=== PATIENT | female | born 1965 | race African-American/Black ===

== ENCOUNTER 2022-09-23 09:10 | Emergency (ER) | payer SELFPAY ==
[2022-09-23 09:20] VITALS: BP 162/77; PULSE 65; RESP 18; TEMP 37.1; O2SAT 99; BMI 38.7
--- NOTE | 2022-09-23 09:28 | ED.GENADUL1 ---
HPI - General Adult General Chief complaint: Neck Pain/Injury Stated complaint: R ARM/NECK TINGLING/NUMBNESS SHOOTS DOWN ARM Time Seen by Provider: 09/23/22 09:27 Source: patient Limitations: no limitations History of Present Illness HPI narrative: pt presents to emergency department complaining of right-sided are pain, numbness like and heaviness. She states this started 3 days ago when she woke up from her sleep. She states it felt like she had aa right neck has been taking anti-inflammatories is not having any relief. She states however when she elevates the arm over her head that feels better and all the symptoms resolve. She denies any trauma. She's never had anything like this before. She denies any cool Extremities. She denies any fever, or chills. She denies any throat pain, or edema. She denies any headache, visual disturbances, or speech difficulties.She states they changed the mattress a couple of months ago. She feels that she has to change her pillows but she did not change it. She states she normally sleeps on her right side but she was not able to sleep on her right side because of the pain. Related Data Previous Rx's Medication Instructions Recorded methylprednisolone 4 mg tablets in 4 mg PO DAILY #21 ea 09/23/22 a dose pack (Medrol (Wilian)) Allergies Allergy/AdvReac Type Severity Reaction Status Date / Time No Known Drug Allergies Allergy Verified 09/23/22 09:20 Review of Systems ROS Status of ROS 10 or more systems reviewed and unremarkable except as noted in history and below [facility] Social History Smoking status: Never smoker Exam Narrative Exam Narrative: Nurses notes and vital signs reviewed and patient is not hypoxic. General: Nontoxic, Well-appearing and in no apparent distress. Skin: Warm, dry, no pallor noted. No Rash Head: Normocephalic, atraumatic. Neck: Supple, non-tender. Eye: Pupils are equal, round and EOMI. No scleral icterus. Ears, Nose, Mouth, and Throat: TM clear, no posterior oropharynx erythema or nasal mucosal hypertrophy, uvula is mid-line Oral mucosa is moist Cardiovascular: Regular Rate and Rhythm without murmur, gallop or rub. Respiratory: No accessory muscle use or respiratory distress. Lungs are clear to auscultation, no wheezing, rales or rhonchi Chest Wall: no tenderness Back: No midline thoracic or lumbar vertebral tenderness. No CVA tenderness Musculoskeletal: normal ROM, no calf or popliteal tenderness, no lower extremity edema/swelling GI: Abdomen is soft, non-distended. Normal bowel sounds. No masses appreciated. No tenderness to palpation. No rebound, guarding, or rigidity noted. Neurological: A&O x4. No cranial nerve dysfunction observed. No truncal ataxia. Moves all extremities. Sensation intact. Psychiatric: Cooperative and interactive. Normal mood and affect. Constitutional Vital Signs, click to edit/add: Last Vital Signs Temp 98.7 F 09/23/22 09:20 Pulse 65 09/23/22 09:20 Resp 18 09/23/22 09:20 BP 162/77 H 09/23/22 09:20 Pulse Ox 99 09/23/22 09:20 O2 Del Method Room Air 09/23/22 09:20 Course Vital Signs Vital signs: Vital Signs Temperature 98.7 F 09/23/22 09:20 Pulse Rate 65 09/23/22 09:20 Respiratory Rate 18 09/23/22 09:20 Blood Pressure 162/77 H 09/23/22 09:20 Pulse Oximetry 99 09/23/22 09:20 Oxygen Delivery Method Room Air 09/23/22 09:20 Temperature 98.7 F 09/23/22 09:20 Pulse Rate 65 09/23/22 09:20 Respiratory Rate 18 09/23/22 09:20 Blood Pressure 162/77 H 09/23/22 09:20 Pulse Oximetry 99 09/23/22 09:20 Oxygen Delivery Method Room Air 09/23/22 09:20 Medical Decision Making MDM Narrative Medical decision making narrative: CT of the cervical spine demonstrates C4 C5 C6 stenosis. All of the results were discussed with patient. She is advised to follow up with primary care doctor. She is given a prescription for Medrol Dosepak. Advised Tylenol, Motrin. Advised no heavy lifting. At this time the patient is without objective evidence of an acute process requiring hospitalization or inpatient management. The patient has remained hemodynamically stable. No additional indication for emergent studies at this time. I answered all questions. Discussed discharge instructions including standard anticipatory guidance and what should prompt a return to the emergency department, including if they get worse are not getting better or develops any new or concerning symptoms. I've given them specific time frame in which to follow-up, and who to follow-up with. The patient demonstrates understanding. Patient is nontoxic and stable for discharge with outpatient follow-up. This note was created with the assistance of a speech recognition program. Although the intention is to generate documents that actually reflects the content of the visit, no guarantees can be provided that every mistake has been identified and corrected by editing. Discharge Plan Discharge Chief Complaint: Neck Pain/Injury Clinical Impression: Cervical radiculopathy Patient Disposition: Home, Self-Care Time of Disposition Decision: 10:52 Condition: Good Mode of Transportation: EMS Prescriptions / Home Meds: New methylprednisolone [Medrol (Wilian)] 4 mg tablets,dose pack 4 mg PO DAILY Qty: 21 0RF Instructions: Cervical Radiculopathy (ED), Neck Pain (ED) Stand Alone Forms: Portal Instructions Referrals: LIO WESLEY APRN [Physician] - 1 week Physician,Non-Staff, MD [Primary Care Provider] - 1 week
--- NOTE | 2022-09-23 09:35 | CT_ITS ---
The [address] [address] Patient Name: RITO FOREMAN MRN: [id number] date: 1965 Sex: F Assigned Patient Location: ER Current Patient Location: ER Accession/Order Number: [id number] Exam Date: 09/23/2022 09:53 Report Date: 09/23/2022 10:31 At the request of: JAIMEE ZAPATA Procedure: CT cervical spine wo con EXAM: CT cervical spine wo con HISTORY: neck pain COMPARISON: None. TECHNIQUE: CT cervical spine without contrast. Multiplanar reformats obtained. The current study utilizes one or more of the following dose-reduction techniques: automated exposure control, iterative reconstruction, and/or manual adjustment of tube current and voltage for size. FINDINGS: No acute fracture or traumatic malalignment. Age expected degenerative changes. Mild to moderate spinal canal stenoses secondary to disc osteophyte complexes at the C4-C5 and C5-C6 levels. Mild bilateral C4-C5 neural foraminal stenosis. Moderate right C5-C6 neural foraminal stenosis. 1.6 cm left thyroid nodule. CT/CT cervical spine wo con IMPRESSION: No acute findings. Disc osteophyte complexes at the C4-C5 and C5-C6 levels produce mild to moderate spinal canal stenosis. Moderate right C5-C6 neural foraminal stenosis. 1.6 cm left thyroid nodule. Nonemergent thyroid ultrasound recommended. Electronically authenticated by: BERNABE HERNANDEZ Date: 09/23/2022 10:31
[2022-09-23] MEDS: KETOROLAC TROMETHAMINE 60 MG/2 ML VIAL IM (10:25)
[2022-09-23] MEDS: ORPHENADRINE 60 MG/ 2 ML VIAL IM (10:25)
== END 2022-09-23 11:38 | disposition home or self-care (01) ==
PROVIDERS: Emergency Provider Emergency Medicine
DX: M54.12 Radiculopathy, cervical region (principal)
CPT/HCPCS: 72125; 96372; 99285

== ENCOUNTER 2022-10-16 14:15 | Emergency (ER) | payer SELFPAY ==
[2022-10-16 14:28] VITALS: BP 150/96; PULSE 102; RESP 20; TEMP 37; O2SAT 98; BMI 39.5
--- NOTE | 2022-10-16 14:52 | ED_ITS ---
HPI - URI/Sore Throat General Chief Complaint: Upper Respiratory Infection Stated Complaint: GENERAL WEAKNESS, SORE THROAT Time Seen by Provider: 10/16/22 14:48 Source: patient Limitations: no limitations History of Present Illness HPI Narrative: 57-year-old female presents with sinus congestion, sore throat and a very mild dry cough for the 2 days. She states that her came in 3 days ago and tested positive for COVID. She complains of a dry mouth. No Tylenol Motrin today. Denies fever, ear pain, difficulty swallowing, drooling, voice change, SOB or CP Related Data Home Medications Medication Instructions Recorded Confirmed atenolol 25 mg tablet 25 mg PO QPM 10/16/22 10/16/22 Allergies Allergy/AdvReac Type Severity Reaction Status Date / Time No Known Drug Allergies Allergy Verified 09/23/22 09:20 Review of Systems ROS Status of ROS 10 or more systems reviewed and unremarkable except as noted in history and below PFSH PFSH Social History Smoking status: Never smoker Exam Narrative Exam Narrative: General: A&Ox3, no distress, talking in full an complete sentences skin: warm, dry, intact head: normocephalic, atraumatic eyes: PERRLA, EOMI, normal conjunctiva nose: nares patent throat: oropharynx no erythema or exudate, no stridor, uvula midline neck: supple, trachea midline cardiac: +S1/S1. no murmur respiratory: lungs CTA, non-labored, no wheezing, no retractions extremities: FROM x 4, strength +5/5 neuro: A&Ox3 psych: appropriate mood and affect, cooperative Constitutional Vital Signs, click to edit/add: Last Vital Signs Temp 98.6 F 10/16/22 14:28 Pulse 102 H 10/16/22 14:28 Resp 20 10/16/22 14:28 BP 150/96 H 10/16/22 14:28 Pulse Ox 98 10/16/22 14:28 O2 Del Method Room Air 10/16/22 14:28 Course Vital Signs Vital signs: Vital Signs Temperature 98.6 F 10/16/22 14:28 Pulse Rate 102 H 10/16/22 14:28 Respiratory Rate 20 10/16/22 14:28 Blood Pressure 150/96 H 10/16/22 14:28 Pulse Oximetry 98 10/16/22 14:28 Oxygen Delivery Method Room Air 10/16/22 14:28 Temperature 98.6 F 10/16/22 14:28 Pulse Rate 102 H 10/16/22 14:28 Respiratory Rate 20 10/16/22 14:28 Blood Pressure 150/96 H 10/16/22 14:28 Pulse Oximetry 98 10/16/22 14:28 Oxygen Delivery Method Room Air 10/16/22 14:28 MDM - URI/Sore Throat MDM Narrative Medical decision making narrative: Patient complaining of dry mouth and thirst and fingerstick glucose 90. COVID- negative. This may be a false negative as her has COVID. Strep negative. Likely viral patient can use xpis-tyu-tvukoxy medications and follow- up with family doctor. She is instructed to use avck-rhd-vflyene medications. F/u with PCP. afebrile, not tachypneic, not tachycardic, not hypoxic, non toxic appearing and ambulating at baseline and hemodynamically stable to be d/c. answered all questions. pt in agreement with tx. educated when to return to ER. Lab Data Labs: Lab Results 10/16/22 10/16/22 Range/Units 14:30 14:52 SARS-CoV-2 (PCR) Negative (NEGATIVE) Streptococcus Screen Negative POC Glucose 90 (74-106) mg/dL Discharge Plan Discharge Chief Complaint: Upper Respiratory Infection Clinical Impression: Close exposure to COVID-19 virus, Viral upper respiratory tract infection with cough Patient Disposition: Home, Self-Care Time of Disposition Decision: 15:04 Condition: Good Mode of Transportation: Private Vehicle Prescriptions / Home Meds: No Action atenolol 25 mg tablet 25 mg PO QPM Instructions: Viral Syndrome (ED), COVID-19 (Coronavirus Disease 2019) (ED) Additional Instructions: use OTC cough med, zyrtec-D and flonase Stand Alone Forms: Portal Instructions Referrals: Physician,Non-Staff, MD [Primary Care Provider] - 1 week
[2022-10-16 14:54] LABS: Glucometer 90 mg/dL (74-106)
[2022-10-16 15:00] LABS: Internal Control Within Normal Limits; SARS-CoV-2 Ag NEGATIVE (NEGATIVE); Strep A Antigen Screen Negative
[2022-10-17 15:33] LABS: SARS-CoV-2 NAA NOT DETECTED (NOT DETECTE)
== END 2022-10-16 15:22 | disposition home or self-care (01) ==
PROVIDERS: Emergency Provider Emergency Medicine
DX: J06.9 Acute upper respiratory infection, unspecified (principal); R05.9 Cough, unspecified; Z20.822 Contact with and (suspected) exposure to COVID-19
CPT/HCPCS: 36415; 87070; 87635; 87880; 99283

== ENCOUNTER 2023-07-27 10:00 | Emergency (ER) | payer SELFPAY ==
[2023-07-27 10:09] VITALS: BP 138/65; PULSE 88; TEMP 38; O2SAT 98; BMI 38.7
--- NOTE | 2023-07-27 10:42 | ED.URI1 ---
HPI - URI/Sore Throat General Chief Complaint: Upper Respiratory Infection Stated Complaint: GENERAL WEAKNESS Time Seen by Provider: 07/27/23 10:42 Source: patient Limitations: no limitations History of Present Illness HPI Narrative: This patient is here complaining of cough congestion sore throat. Her is here being seen but he has fewer symptoms and none of the aches pains myalgias that she has. She says it came on all of a sudden. She says she just feels terrible. There is no nausea or vomiting. She has got some white sputum production. She does not use tobacco products. She has no skin rash. She has not lost her voice. She does not have any earache or headache. She has no shortness of breath or swelling of her legs. She has no chest pain Related Data Home Medications ?Medication ?Instructions ?Recorded ?Confirmed atenolol 25 mg tablet 25 mg PO QPM 10/16/22 10/16/22 Allergies Allergy/AdvReac Type Severity Reaction Status Date / Time No Known Drug Allergies Allergy Verified 07/27/23 10:08 [facility] Social History Smoking status: Never smoker Exam Narrative Exam Narrative: Patient is awake alert and no distress. Does not appear an extremis. She has a very low-grade fever. Her pulse oximetry is normal at 98% on room air. In a sitting position her lungs are completely clear with slight wheezing with forced exhalation. Otherwise there is no rales or rhonchi. Heart sounds are normal with no clicks rubs or murmur. Skin integument showed normal hydration with no evidence of pallor or anemia. She has no abdominal discomfort. ENT showed no other focus of infection. Extremities do not show any edema phlebitis or cellulitis. Constitutional Vital Signs, click to edit/add: Last Vital Signs Temp 100.4 F 07/27/23 10:09 Pulse 88 07/27/23 10:09 Resp 20 07/27/23 10:09 BP 138/65 07/27/23 10:09 Pulse Ox 98 07/27/23 10:09 O2 Del Method Room Air 07/27/23 10:09 Course Vital Signs Vital signs: Vital Signs Temperature 100.4 F 07/27/23 10:09 Pulse Rate 88 07/27/23 10:09 Respiratory Rate 20 07/27/23 10:09 Blood Pressure 138/65 07/27/23 10:09 Pulse Oximetry 98 07/27/23 10:09 Oxygen Delivery Method Room Air 07/27/23 10:09 Temperature 100.4 F 07/27/23 10:09 Pulse Rate 88 07/27/23 10:09 Respiratory Rate 20 07/27/23 10:09 Blood Pressure 138/65 07/27/23 10:09 Pulse Oximetry 98 07/27/23 10:09 Oxygen Delivery Method Room Air 07/27/23 10:09 MDM - URI/Sore Throat MDM Narrative Medical decision making narrative: This patient and her both present with similar symptoms however she has aches and pains and chills so therefore I do want to rule out COVID and influenza or pneumonia. Her viral studies are negative and her chest x-ray is also negative. She did receive an albuterol treatment because of her slight wheezing and I will place her on albuterol but I do not believe that at this time she will need home nebulizers. If her symptoms persist she can start a Z-Wilian. Discharge Plan Discharge Stand Alone Forms: Portal Instructions Chief Complaint: Upper Respiratory Infection Clinical Impression: URI with cough and congestion Patient Disposition: Home, Self-Care Time of Disposition Decision: 11:50 Prescriptions / Home Meds: No Action atenolol 25 mg tablet 25 mg PO QPM Print Language: Sinhala Additional Instructions: Albuterol inhaler Z-Wilian Referrals: SANTOS COOLEY [Primary Care Provider] - 1 week
--- NOTE | 2023-07-27 10:43 | XR_ITS ---
[address] [address] Patient Name: RITO FOREMAN MRN: [id number] date: 1965 Sex: F Assigned Patient Location: ER Current Patient Location: ER Accession/Order Number: [id number] Exam Date: 07/27/2023 11:17 Report Date: 07/27/2023 11:40 At the request of: CAMELIA CORREA Procedure: XR chest 1V EXAM: Chest x-ray HISTORY: . Cough/fever . COMPARISON: 01/31/2021 TECHNIQUE: Single view of the chest FINDINGS: Heart is slightly enlarged. Vascularity is unremarkable. Lungs are free of focal infiltrates. Grossly no bony abnormality is appreciated. XR/XR chest 1V IMPRESSION: 1. Cardiac enlargement. 2. No infiltrates. Electronically authenticated by: LORA ESCALANTE Date: 07/27/2023 11:40
[2023-07-27] MEDS: ALBUTEROL SULFATE 2.5 MG/3 ML VIAL NEB IH (11:07)
[2023-07-27 11:08] VITALS: PULSE 85; O2SAT 98
[2023-07-27 11:16] LABS: Influenza Virus A Antigen Negative; Influenza Virus B Antigen Negative; Internal Control Within Normal Limits; SARS-CoV-2 Ag NEGATIVE (NEGATIVE)
[2023-07-27 11:43] VITALS: BP 144/71; PULSE 98; O2SAT 99
== END 2023-07-27 11:59 | disposition home or self-care (01) ==
PROVIDERS: Emergency Provider Emergency Medicine Emergency Medical Services; PCP Nurse Practitioner Family
DX: J06.9 Acute upper respiratory infection, unspecified (principal); R05.9 Cough, unspecified; R09.89 Other specified symptoms and signs involving the circulatory and respiratory systems; R50.9 Fever, unspecified; Z20.822 Contact with and (suspected) exposure to COVID-19
CPT/HCPCS: 71045; 87804; 87811; 94640; 99284

== ENCOUNTER 2023-11-27 12:48 | Outpatient (OUT) | payer SELFPAY ==
--- OUTSIDE RECORDS SUMMARY | 2023-11-27 13:09 | XMS_ITS | CCD ---
Author Organization [facility] Care Team Providers Care Recycling Director Name Role Phone TOMMY, FADUMO Unavailable Unavailable TOMMY, FADUMO Unavailable Unavailable TOMMY, FADUMO Unavailable Unavailable TOMMY, FADUMO Unavailable Unavailable TOMMY, FADUMO Unavailable Unavailable TOMMY, FADUMO Unavailable Unavailable ANAYELI CASSIDY Admitting Unavailable STEPBALWINDER, ANAYELI Celaya Attending Unavailable STEPANAYELI BRITT Admitting Unavailable STEPANAYELI BRITT Attending Unavailable SUSAN ., DR ENCARNACION Consulting Unavailable SUSAN ., DR ENCARNACION Admitting Unavailable NADERER, DR JUAN Campa Primary Care Unavailable SUSAN ., DR ENCARNACION Attending Unavailable NADERER, DR JUAN Campa Primary Care Unavailable KUNWinter, DR ROWAN Culver Admitting Unavailable STEVEN, DR ROWAN Culver Attending Unavailable STEVEN, DR ROWAN Culver Attending Unavailable STEVEN, DR ROWAN Culver Primary Care Unavailable STEVEN, DR ROWAN Culver Admitting Unavailable ZIEBER, DR TIM Culver Consulting Unavailable STEVEN, DR ROWAN Culver Consulting Unavailable NOEMY, DR JUAN Campa Primary Care Unavailable ZIEBRHONDA, DR TIM Culver Consulting Unavailable STEVEN, DR ROWAN Culver Attending Unavailable STEVEN, DR ROWAN Culver Admitting Unavailable KUNS, DR ROWAN Culver Consulting Unavailable NADEREPalomo, DR JUAN Campa Primary Care Unavailable KUNS, DR ROWAN Culver Attending Unavailable STEVEN, DR ROWAN Culver Consulting Unavailable STEVEN, DR ROWAN Culver Admitting Unavailable Steven REMEDIATION PROJECT ENGINEER-Rowan GARCIA Primary Care Provider ROWAN HARRIS Referring Unavailable ROWAN HARRIS Primary Care Unavailable ROWAN HARRIS Attending Unavailable STEVEN, ROWAN MARTINEZ Referring Unavailable STEVEN, ROWAN MARTINEZ Primary Care Unavailable JEREMY WADSWORTH Attending Unavailable JEREMY WADSWORTH Referring Unavailable JEREMY WADSWORTH Primary Care Unavailable Medications Current Medications Medication Drug Class(es) Dates Sig (Normalized) Sig (Original) atenolol 25 mg oral tablet (3 sources) beta-Adrenergic Leland Start: 04-10-2023 take 1 tablet by mouth once daily in the evening atenoloL (TENORMIN) 25 mg tablet Indications: Hypertension, unspecified type take 1 tablet by mouth every evening 30 tablet 5 04/10/2023 Active Start: 10-07-2022 End: 04-10-2023 take 1 tablet by mouth once daily in the evening atenoloL (TENORMIN) 25 mg tablet Indications: Hypertension, unspecified type take 1 tablet by mouth every evening 30 tablet 5 10/07/2022 04/10/2023 Discontinued Biotin (2 sources) take 3 capsules by mouth once daily BIOTIN ORAL Take 3 capsules by mouth once daily. 0 Active cholecalciferol 0.125 mg oral capsule (3 sources) Vitamin D Start: 05-05-2023 take 1 capsule by mouth once daily cholecalciferol, vitamin D3, (VITAMIN D3) 5,000 units capsule take 1 capsule by mouth once daily 30 capsule 5 05/05/2023 Active Start: 01-10-2022 End: 05-05-2023 take 1 capsule by mouth in the morning cholecalciferol, vitamin D3, (VITAMIN D3) 5,000 units capsule Take 1 capsule (5,000 Units total) by mouth in the morning. 0 01/10/2022 05/05/2023 Discontinued fluocinonide 0.5 mg/ml topical solution (2 sources) Corticosteroid Start: 08-21-2022 fluocinonide (LIDEX) 0.05 % external solution APPLY TO SCALP AND MASSAGE INTO AFFECTED AREAS ONCE A DAY SUNDAY TO SUNDAY - OFF ON WEEKENDS 0 08/21/2022 Active ibuprofen 800 mg oral tablet (2 sources) Nonsteroidal Anti-inflammatory Drug Start: 09-25-2022 take 1 tablet by mouth every six hours at mealtime as needed for pain ibuprofen (MOTRIN) 800 mg tablet Indications: Cervical radiculopathy Take 1 tablet (800 mg total) by mouth every 6 (six) hours as needed for pain. HOLD MELOXICAM WHILE TAKING THIS DRUG. Take with food. 60 tablet 0 09/25/2022 Active multivitamin with iron (ONE DAILY PLUS IRON) tablet (2 sources) take 1 tablet by mouth in the morning, then take 1 tablet by mouth once daily multivitamin with iron (ONE DAILY PLUS IRON) tablet Take 1 tablet by mouth in the morning. 0 Active tiZANidine 4 mg oral tablet (2 sources) Central alpha-2 Adrenergic Agonist Start: 10-09-2022 take 1 tablet by mouth every eight hours for muscle spasms tiZANidine (ZANAFLEX) 4 mg tablet Indications: Cervical radiculopathy , Muscle spasms of neck take 1 tablet by mouth every 8 hours if needed for muscle spasm 12 tablet 0 10/09/2022 Active Problems Active Problems Problem Classification Problem Date Documented Date Episodic/Chronic Chronic obstructive pulmonary disease and bronchiectasis (1 source) Bronchitis, not specified as acute or chronic; Translations: [Bronchitis, not specified as acute or chronic] Onset: 07-31-2023 Episodic Disorders of lipid metabolism (2 sources) Mixed hyperlipidemia; Translations: [Mixed hyperlipidemia] Onset: 07-26-2021 04-28-2022 Chronic Essential hypertension (6 sources) Hypertensive disorder; Translations: [Essential (primary) hypertension] Onset: 02-07-2022 04-10-2023 Chronic Joint disorders and dislocations; trauma-related (2 sources) Derangement of left knee; Translations: [Unspecified internal derangement of left knee] Onset: 10-28-2021 10-28-2021 Chronic Menopausal disorders (7 sources) Postmenopausal bleeding; Translations: [Postmenopausal bleeding] Onset: 10-26-2021 Chronic Nutritional deficiencies (3 sources) Vitamin D deficiency; Translations: [Vitamin D deficiency, unspecified] Onset: 07-26-2021 04-28-2022 Chronic Osteoarthritis (2 sources) Osteoarthritis of left knee joint; Translations: [Unilateral primary osteoarthritis, left knee] Onset: 10-28-2021 10-28-2021 Chronic Other acquired deformities (2 sources) Contracture of joint of left ankle; Translations: [Contracture, left ankle] Onset: 10-28-2021 10-28-2021 Chronic Other connective tissue disease (1 source) Other muscle spasm; Translations: [Other muscle spasm] Onset: 10-09-2023 Episodic Other ear and sense organ disorders (2 sources) Sensorineural hearing loss, bilateral; Translations: [Sensorineural hearing loss, bilateral] Onset: 04-18-2017 04-18-2017 Chronic Other lower respiratory disease (1 source) Cough Onset: 07-31-2023 Episodic Other screening for suspected conditions (not mental disorders or infectious disease) (1 source) Abnormal findings on diagnostic imaging of other specified body structures; Translations: [ABNORML FIND DX IMG OTH BODY STRUC] Onset: 10-27-2021 Chronic Other screening for suspected conditions (not mental disorders or infectious disease) (12 sources) Encounter for screening for malignant neoplasm of cervix; Translations: [Encounter for screening mammogram for malignant neoplasm of breast] Onset: 02-13-2017 Episodic Residual codes; unclassified (1 source) Asymptomatic menopausal state; Translations: [Asymptomatic menopausal state] Onset: 10-09-2023 Episodic Spondylosis; intervertebral disc disorders; other back problems (1 source) Radiculopathy, cervical region; Translations: [Radiculopathy, cervical region] Onset: 07-31-2023 Episodic Thyroid disorders (4 sources) Thyroid nodule; Translations: [Nontoxic single thyroid nodule] Onset: 01-09-2023 01-09-2023 Chronic Unclassified (1 source) Unknown / UNK(Unknown) Onset: 03-29-2017 Past or Other Problems Problem Classification Problem Date Documented Date Episodic/Chronic Conditions associated with dizziness or vertigo (4 sources) Dizziness of unknown cause; Translations: [Dizziness and giddiness] Onset: 04-18-2017 04-18-2017 Episodic Mood disorders (2 sources) Mood disorders Onset: 01-09-2023 01-09-2023 Other female genital disorders (1 source) Noninflammatory disorder of uterus, unspecified; Translations: [NONINFLAMMATORY DISORDER UTERUS UNS] Onset: 10-27-2021 Episodic Other lower respiratory disease (4 sources) Other forms of dyspnea; Translations: [OTHER FORMS OF DYSPNEA] Onset: 08-19-2021 Episodic Residual codes; unclassified (1 source) Family history of malignant neoplasm of digestive organs; Translations: [FAM HX MALIG NEOPLASM DIGESTIV ORGN] Onset: 09-20-2021 Episodic Residual codes; unclassified (1 source) Family history of malignant neoplasm of kidney; Translations: [FAM HX MALIGNANT NEOPLASM KIDNEY] Onset: 09-20-2021 Episodic Residual codes; unclassified (1 source) Family history of malignant neoplasm of bladder; Translations: [FAM HX MALIGNANT NEOPLASM BLADDER] Onset: 09-20-2021 Episodic Superficial injury; contusion (2 sources) Foreign body of breast; Translations: [Superficial foreign body of breast, unspecified breast, initial encounter] Onset: 02-13-2017 10-28-2021 Episodic Unclassified (2 sources) Onset: 09-25-2022 09-25-2022 Results Test Name Value Interpretation Reference Range Facility CBC AND AUTO DIFFon 07-31-19 24 ABSOLUTE BASOPHIL 0.0 X10E9/L Normal 0.0-0.2 [facility] Comment on above: Performed By: #### C BCA, CMP, THYR #### [facility] ([id number]) [address], [address] [place] [address] ABSOLUTE NEUTROPHIL 2.8 X10E9/L Normal 1.5-6.6 [facility] Comment on above: Performed By: #### C BCA, CMP, THYR #### [facility] ([id number]) [address] [address] [place] [address] Basophils/100 WBC (Bld) 0.6 % Normal [facility] Comment on above: Performed By: #### C BCA, CMP, THYR #### [facility] ([id number]) [address], [address] [place] [address] Eosinophils (Bld) [#/Vol] 0.2 10*3/uL Normal 0.0-0.4 [facility] Comment on above: Performed By: #### C BCA, CMP, THYR #### [facility] ([id number]) [address], [address] [place] [address] Eosinophils/100 WBC (Bld) 3.3 % Normal [facility] Comment on above: Performed By: #### C BCA, CMP, THYR #### [facility] ([id number]) [address], [address] [place] [address] Erythrocyte distribution width (RBC) [Ratio] 13.0 % Normal 11.5-15.0 [facility] Comment on above: Performed By: #### C BCA, CMP, THYR #### [facility] ([id number]) [address], [address] [place] [address] Hematocrit (Bld) [Volume fraction] 38.4 % Normal 35-47 [facility] Comment on above: Performed By: #### C BCA, CMP, THYR #### [facility] ([id number]) [address], [address] [place] [address] Hemoglobin (Bld) [Mass/Vol] 12.7 g/dL Normal 11.7-15.5 [facility] Comment on above: Performed By: #### C BCA, CMP, THYR #### [facility] ([id number]) [address], [facility] [address] [place] [address] Lymphocytes (Bld) [#/Vol] 2.2 10*3/uL Normal 1.0-3.5 [facility] Comment on above: Performed By: #### C BCA, CMP, THYR #### [facility] ([id number]) [address], [facility] [address] [place] [address] Lymphocytes/100 WBC (Bld) 37.9 % Normal [facility] Comment on above: Performed By: #### C BCA, CMP, THYR #### [facility] ([id number]) [address], [address] [place] [address] MCH (RBC) [Entitic mass] 29.7 pg Normal 27-34 [facility] Comment on above: Performed By: #### C BCA, CMP, THYR #### [facility] ([id number]) [address], [address] [place] [address] MCHC (RBC) [Mass/Vol] 33.0 g/dL Normal 32-36 [facility] Comment on above: Performed By: #### C BCA, CMP, THYR #### [facility] ([id number]) [address], [address] [place] [address] MCV (RBC) [Entitic vol] 90 fL Normal 80-100 [facility] Comment on above: Performed By: #### C BCA, CMP, THYR #### [facility] ([id number]) [address], [facility] [address] [place] [address] Monocytes (Bld) [#/Vol] 0.6 10*3/uL Normal 0-0.9 [facility] Comment on above: Performed By: #### C BCA, CMP, THYR #### [facility] ([id number]) [address] [address] [place] [address] Monocytes/100 WBC (Bld) 10.3 % Normal [facility] Comment on above: Performed By: #### C BCA, CMP, THYR #### [facility] ([id number]) [address], [facility] [address] [place] [address] Neutrophils/100 WBC (Bld) 47.9 % Normal [facility] Comment on above: Performed By: #### C BCA, CMP, THYR #### [facility] ([id number]) [address], [facility] [address] [place] [address] Platelet mean volume (Bld) [Entitic vol] 10.0 fL Normal 7-12 [facility] Comment on above: Performed By: #### C BCA, CMP, THYR #### [facility] ([id number]) [address], [facility] [address] [place] [address] Platelets (Bld) [#/Vol] 244 10*3/uL Normal 150-450 [facility] Comment on above: Performed By: #### C BCA, CMP, THYR #### [facility] ([id number]) [address], [address] [place] [address] RBC COUNT 4.27 X10E12/L Normal 3.80-5.20 [facility] Comment on above: Performed By: #### C BCA, CMP, THYR #### [facility] ([id number]) [address], [address] [place] [address] WBC (Bld) [#/Vol] 5.9 10*3/uL Normal 4.0-11.0 [facility] Comment on above: Performed By: #### C BCA, CMP, THYR #### [facility] ([id number]) [address], [address] [place] [address] COMPREHENSIVE METABOLIC PANE [facility] 07-31-2023 Albumin [Mass/Vol] 4.0 g/dL Normal 3.2-5.3 [facility] Comment on above: Performed By: #### C BCA, CMP, THYR #### [facility] ([id number]) [address], [address] [place] [address] ALP [Catalytic activity/Vol] 54 U/L Normal 39-130 [facility] Comment on above: Performed By: #### C BCA, CMP, THYR #### [facility] ([id number]) [address], [address] [place] [address] ALT [Catalytic activity/Vol] 20 U/L Normal 0-31 [facility] Comment on above: Performed By: #### C BCA, CMP, THYR #### [facility] ([id number]) [address], [address] [place] [address] Anion gap [Moles/Vol] 9 mmol/L Normal 5-15 [facility] Comment on above: Performed By: #### C BCA, CMP, THYR #### [facility] ([id number]) [address], [address] [place] [address] AST [Catalytic activity/Vol] 20 U/L Normal 0-41 [facility] Comment on above: Performed By: #### C BCA, CMP, THYR #### [facility] ([id number]) [address], [address] [place] [address] Bilirubin [Mass/Vol] 0.7 mg/dL Normal 0.3-1.2 [facility] Comment on above: Performed By: #### C BCA, CMP, THYR #### [facility] ([id number]) [address], [facility] [address] [place] [address] Calcium [Mass/Vol] 9.1 mg/dL Normal 8.5-10.5 [facility] Comment on above: Performed By: #### C BCA, CMP, THYR #### [facility] ([id number]) [address] [address] [place] [address] Chloride [Moles/Vol] 106 mmol/L Normal 98-109 [facility] Comment on above: Performed By: #### C BCA, CMP, THYR #### [facility] ([id number]) [address], [address] [place] [address] CO2 [Moles/Vol] 27 mmol/L Normal 22-32 [facility] Comment on above: Performed By: #### C BCA, CMP, THYR #### [facility] ([id number]) [address] [address] Creatinine [Mass/Vol] 0.69 mg/dL Normal 0.40-1.00 [facility] Comment on above: Result Comment: METH OD TRACEABLE TO IDMS STANDARD Performed By: #### C BCA, CMP, THYR #### [facility] ([id number]) [address] [address] [place] [address] eGFR (CKD-EPI) NON-RACE DEPENDENT >90 Normal >59 [facility] Comment on above: Result Comment: Reported eGFR is based on the CKD-EPI 2020 equation that does not use a race coefficient. Performed By: #### C BCA, CMP, THYR #### [facility] ([id number]) [address], [address] [place] [address] Glucose [Mass/Vol] 95 mg/dL Normal 65-99 [facility] Comment on above: Performed By: #### C BCA, CMP, THYR #### [facility] ([id number]) [address], [address] [place] [address] Potassium [Moles/Vol] 3.6 mmol/L Normal 3.5-5.0 [facility] Comment on above: Performed By: #### C BCA, CMP, THYR #### [facility] ([id number]) [address], [address] [place] [address] Protein [Mass/Vol] 7.3 g/dL Normal 6.0-8.0 [facility] Comment on above: Performed By: #### C BCA, CMP, THYR #### [facility] ([id number]) [address], [address] [place] [address] Sodium [Moles/Vol] 142 mmol/L Normal 134-146 [facility] Comment on above: Performed By: #### C BCA, CMP, THYR #### [facility] ([id number]) [address], [address] [place] [address] Urea nitrogen [Mass/Vol] 10 mg/dL Normal 5-23 [facility] Comment on above: Performed By: #### C BCA, CMP, THYR #### [facility] ([id number]) [address], [address] [place] [address] THYROID PROFILEon 07-31-2023 Free T4 [Mass/Vol] 1.10 ng/dL Normal 0.61-1.60 [facility] Comment on above: Performed By: #### C BCA, CMP, THYR #### [facility] ([id number]) [address], [address] [place] [address] TSH 0.36 uIU/mL Low 0.49-4.67 [facility] Comment on above: Performed By: #### C BCA, CMP, THYR #### [facility] ([id number]) [address] [place] [address] PAP ACOG PANEL 2: 30 to 65on 06-15-[address] [facility] Comment on above: Result Comment: Perf ormed at: WB Performed By: #### [id number] #### [facility] [address] [address] [address] Keke Malhotra Age Gdln ACOG Testing 30-[address] [facility] Comment on above: Performed By: #### [id number] #### [facility] [address] [address] [address] Keke Malhotra DIAGNOSIS: Comment Normal [facility] Comment on above: Result Comment: NEGA TIVE FOR INTRAEPITHELIAL LESION OR MALIGNANCY. Performed at: WB Performed By: #### 4 [id number] #### [facility] [address] [address] [address] Keke Malhotra HPV Aptima Negative Normal Negative [facility] Comment on above: Result Comment: This nucleic acid amplification test detects fourteen high-risk HPV types (16,18,31,33,35,39,45,51,52,56,58,59,66,68) without differentiation. Performed at: =G Performed By: #### 4 [id number] #### [facility] [address] [address] [address] Keke Malhotra HPV Genotype Reflex Comment Normal [facility] Comment on above: Result Comment: Crit eria not met, HPV Genotype not performed. Performed at: WB Performed By: #### [id number] #### [facility] [address] [address] [address] Keke Malhotra Methodology: Comment Normal [facility] Comment on above: Result Comment: This liquid based ThinPrep(R) pap test was screened with the use of an image guided system. Performed at: WB Performed By: #### [id number] #### [facility] [address] [address] [address] Keke Malhotra Note: Comment Normal [facility] Comment on above: Result Comment: The Pap smear is a screening test designed to aid in the detection of premalignant and malignant conditions of the uterine cervix. It is not a diagnostic procedure and should not be used as the sole means of detecting cervical cancer. Both false-positive and false-negative reports do occur. . Performed at: WB Performed By: #### [id number] #### [facility] [address] [address] [address] Keke Malhotra Performed by: Comment Normal [facility] Comment on above: Result Comment: Gina Saleem Welding Machine Operator/Tender (ASCP) Performed at: WB Performed By: #### [id number] #### [facility] [address] [place] [address] Dr. Keke Malhotra Specimen adequacy: Comment [facility] Comment on above: Result Comment: Sati sfactory for evaluation. No endocervical component is identified. Performed at: WB Performed By: #### [id number] #### [facility] [address] [place] [address] Dr. Keke Malhotra US PELVIS AND TRANSVAGon US PELVIS AND TRANSVAG EXAMINATION: US PELVIS AND TRANSVAG HISTORY: Postmenopausal bleeding COMPARISON: Ultrasound pelvis 01/19/2021 TECHNIQUE: Transabdominal and transvaginal sonographic examination. FINDINGS: UTERUS: Lower right uterine body exophytic mass, 3.5 x 3.3 x 3.5 cm. Possible additional hypoechoic area within mid uterine body, possible leiomyoma. Several nabothian cysts within cervix. Uterus size: 9.7 x 5.1 x 6.0 cm ENDOMETRIUM: Normal homogeneous appearance. Endometrial thickness: 9 mm RIGHT OVARY: Not seen. LEFT OVARY: Not seen. CUL-DE-SAC: Unremarkable. No significant free fluid. BLADDER: Unremarkable. OTHER: None. IMPRESSION: 1. Stable uterine mass favoring a leiomyoma. 2. Thickened endometrium for a postmenopausal patient without appreciable endometrial mass or polyp. Endometrial hyperplasia? Electronically authenticated by: TIM ALBRIGHT Date: 2021-10-27 07:[address] [facility] MG MAMM SCREEN 3D ROSSY CADon 09-19-2021 MG MAMM SCREEN 3D ROSSY CAD Patient: RITO FOREMAN. Exam Date: 09/19/2021 : 1965 Gender:F Ordering : DR ROWAN HARRIS Admission #: [id number] Family : Order #: [id number] CLICK HERE TO VIEW EXAM RADIOLOGY REPORT PROCEDURE: MAMMOGRAM SCREENING 3D BILATERAL CAD COMPARISON: MG MAMM SCREEN 3D ROSSY CAD, 07/12/2020. MG MAMM ROSSY DIAG W CAD, 06/09/2019. INDICATIONS: Screening mammography Calculator Name NCI Breast Cancer Risk Assessment Tool 5 Year Breast Cancer Risk 1.50% Lifetime Breast Cancer Risk 8.20% Personal Breast Cancer No Personal Ovarian Cancer No Treatments None Family Cancers Father with esophageal cancer at age 68; Grandmother-paternal with renal/bladder cancer at age 85. LOCATION: [facility] BREAST COMPOSITION: Heterogeneously dense,which may obscure small masses. FINDINGS: DIAGNOSTIC CATEGORY 2--BENIGN FINDING: RIGHT BREAST: No significant suspicious finding. Scattered benign-appearing nodules are present. No significant change has occurred. LEFT BREAST: No significant suspicious finding. Scattered benign-appearing nodules are present. No significant change has occurred. RECOMMENDATIONS: ROUTINE MAMMOGRAM AND CLINICAL EVALUATION IN 12 MONTHS. PLEASE NOTE: A NORMAL MAMMOGRAM DOES NOT EXCLUDE THE POSSIBILITY OF BREAST CANCER. A CLINICALLY SUSPICIOUS PALPABLE LUMP SHOULD BE BIOPSIED. Dictated by: Tim Albright M.D. on 09/19/2021 at 15:39 Approved by: Tim Albright M.D. on 09/19/2021 at 15:48 Normal [facility] ECHOCARDIO M/2D COMPLETEon 0 08-19-2021 ECHOCARDIO M/2D COMPLETE Patient: RITO FOREMAN Exam Date: 08/19/2021 : 1965 Gender:F Ordering : DR ROWAN HARRIS Admission #: [id number] Family : Order #: [id number] CLICK HERE TO VIEW EXAM ECHOCARDIOGRAM REPORT PROCEDURE: CARDIO PULMONARY ECHOCARDIO M/2D COMP INDICATIONS: Dyspnea on exertion COMPARISON: None. DESCRIPTION: COMPLETE ECHOCARDIOGRAM Real-time transthoracic echocardiography with 2D, M-mode, spectral and color flow Doppler performed. QUALITY: Technical quality was good. LEFT VENTRICLE: Normal chamber size. Mild concentric left ventricular hypertrophy. Global left ventricular systolic function is normal. LV EF: Visual estimation of left ventricular ejection fraction is 65% DIASTOLIC: Normal diastolic function. ATRIAL SEPTUM: LEFT ATRIUM: Normal chamber size. RIGHT ATRIUM: Normal chamber size. RIGHT VENTRICLE: Normal chamber size. TRICUSPID VALVE: Normal mobility and thickness. No stenosis with trivial regurgitation. No evidence of pulmonary hypertension. MITRAL VALVE: Normal mobility and thickness. No mitral valve prolapse. No evidence of mitral valve stenosis. There is no mitral annular calcification. Trivial mitral regurgitation. AORTIC VALVE: Normal trileaflet appearance. No visible sclerosis. Normal leaflet mobility. No evidence of aortic valve stenosis. No aortic regurgitation. AORTIC ROOT: Normal diameter and appearance. PULMONIC VALVE: Normal thickness and mobility. No stenosis. No regurgitation. PERICARDIUM: No evidence of pericardial effusion. IVC: Collapses with inspirations. Normal size PLEURA: CONCLUSION: 1. Normal ventricular function. LVEF is 65%. 2. No significant valvular dysfunction. 3. No evidence of elevated right-sided pressures. 4. No pericardial effusion. Adult Echocardiography Procedure Report Left Ventricle LVEDD (3.7 - 5.6 cm): 4.74 cm LVESD (2.2 - 4.0 cm): 2.66 cm LVIVS thickness (0.6 - 1.2 cm): 1.19 cm LVPW thickness (0.5 - 1.0 cm): 1.09 cm e': 10.20 cm/s E - e': 5.70 LVOT Area (cm2): 3.46 cm2 LVOT Diameter 2.10 cm Left Ventricular Ejection Fraction: 65 % Left Atrium LA Volume Index (2D A2C): 30.50 ml/m2 Left Atrium Systolic Dimension: 4.10 cm Left Atrium Systolic Area(A2C): 21.60 cm2 Left Atrium Systolic Area(A4C): 21.70 cm2 Left Atrium Systolic Volume(A2C): 30329 mm3 Left Atrium Systolic Volume(A4C): 70329 mm3 Mitral Valve MV E to A Ratio: 0.80 Deceleration [place]: 2280 mm/s2 Mitral Valve A-Wave Peak Velocity: 71.60 cm/s Mitral Valve E-Wave Peak Velocity: 57.80 cm/s Right Ventricle RV Internal Diastolic Dimension: 3.22 cm Aorta AO Root Diam: 3.00 cm Aortic Valve AoV Area (Peak Demetris): 3.77 cm2 Aortic Valve Cusp Separation: 1.60 cm Peak Velocity(Antegrade Flow): 82.80 cm/s Peak Gradient(Antegrade Flow): 3 mm[Hg] Tricuspid Valve Pulmonic Valve Peak Velocity: 85.50 cm/s Peak Gradient: 3 mm[Hg] Right Atrium Dictated by: Anayeli Birmingham M.D. on 08/22/2021 at 12:39 Approved by: Anayeli Birmingham M.D. on 08/22/2021 at 12:40 Normal [facility] METABOLIC PANE Kalpesh 07-28-2021 Albumin [Mass/Vol] 4.1 g/dL Normal 3.6-5.1 [facility] Comment on above: Performed By: #### 1 0231, 28581, 7600 #### [facility] [place] [address] Thermoforming Operator: Dylon Cordova MD Albumin/Globulin [Mass ratio] 1.4 {ratio} Normal 1.0-2.5 [facility] Comment on above: Performed By: #### 1 0231, 54002, 7600 #### [facility] [place] [address] Thermoforming Operator: Dylon Cordova MD ALP [Catalytic activity/Vol] 61 U/L Normal 37-153 [facility] Comment on above: Performed By: #### 1 0231, 60269, 7600 #### [facility] [place] [address] Thermoforming Operator: Dylon Cordova MD ALT [Catalytic activity/Vol] 16 U/L Normal 6-29 [facility] Comment on above: Performed By: #### 1 0231, 71014, 7600 #### [facility] [place] [address] Thermoforming Operator: Dylon Cordova MD AST [Catalytic activity/Vol] 16 U/L Normal 10-35 [facility] Comment on above: Performed By: #### 1 0231, 58087, 7600 #### [facility] [place] [address] Thermoforming Operator: Dylon Cordova MD Bilirubin [Mass/Vol] 0.6 mg/dL Normal 0.2-1.2 [facility] Comment on above: Performed By: #### 1 0231, 91146, 7600 #### [facility] [place] [address] Thermoforming Operator: Dylon Cordova MD BUN/CREATININE RATIO NOT APPLICABLE Normal 6-22 [facility] Comment on above: Performed By: #### 1 0231, 82053, 7600 #### [facility] [address], [address] [place] [address] Thermoforming Operator: Dylon Cordova MD Calcium [Mass/Vol] 9.1 mg/dL Normal 8.6-10.4 [facility] Comment on above: Performed By: #### 1 0231, 73859, 7600 #### [facility] [place] [address] Thermoforming Operator: Dylon Cordova MD Chloride [Moles/Vol] 106 mmol/L Normal 98-110 [facility] Comment on above: Performed By: #### 1 0231, 94572, 7600 #### [facility] [place] [address] Thermoforming Operator: Dylon Cordova MD CO2 [Moles/Vol] 24 mmol/L Normal 20-32 [facility] Comment on above: Performed By: #### 1 0231, 58576, 7600 #### [facility] [place] [address] Thermoforming Operator: Dylon Cordova MD Creatinine [Mass/Vol] 0.67 mg/dL Normal 0.50-1.05 [facility] Comment on above: Result Comment: For patients >49 years of age, the reference limit for Creatinine is approximately 13% higher for people identified as -Latvian. Performed By: #### 1 0231, 26586, 7600 #### [facility] [place] [address] Thermoforming Operator: Dylon Cordova MD eGFR NON-AFR. [place] 98 mL/min/1.73m2 Normal > OR = 60 [facility] Comment on above: Performed By: #### 1 0231, 30196, 7600 #### [facility] [place] [address] Thermoforming Operator: Dylon Cordova MD GFR/1.73 sq M.predicted among blacks MDRD (S/P/Bld) [Vol rate/Area] 114 mL/min/{1.73_m2} Normal > OR = 60 [facility] Comment on above: Performed By: #### 1 0231, 35436, 7600 #### [facility] [address], [address] [place] [address] Thermoforming Operator: Dylon Cordova MD Globulin (S) [Mass/Vol] 2.9 g/dL Normal 1.9-3.7 [facility] Comment on above: Performed By: #### 1 0231, 83627, 7600 #### [facility] of [address], [address] [place] [address] Thermoforming Operator: Dylon Cordova MD Glucose [Mass/Vol] 92 mg/dL Normal 65-99 [facility] Comment on above: Result Comment: Fasting reference interval Performed By: #### 1 0231, 20668, 7600 #### [facility] [place] [address] Thermoforming Operator: Dylon Cordova MD Potassium [Moles/Vol] 4.0 mmol/L Normal 3.5-5.3 [facility] Comment on above: Performed By: #### 1 0231, 66570, 7600 #### [facility] [place] [address] Thermoforming Operator: Dylon Cordova MD Protein [Mass/Vol] 7.0 g/dL Normal 6.1-8.1 [facility] Comment on above: Performed By: #### 1 0231, 28899, 7600 #### [facility] [place] [address] Thermoforming Operator: Dylon Cordova MD Sodium [Moles/Vol] 139 mmol/L Normal 135-146 [facility] Comment on above: Performed By: #### 1 0231, 70228, 7600 #### [facility] [address], [address] [place] [address] Thermoforming Operator: Dylon Cordova MD Urea nitrogen [Mass/Vol] 10 mg/dL Normal 7-25 [facility] Comment on above: Performed By: #### 1 0231, 16659, 7600 #### [facility] [address], [address] [place] [address] Thermoforming Operator: Dylon Cordova MD LIPID PANEL, [facility] 06-0 Cholesterol [Mass/Vol] 169 mg/dL Normal <200 [facility] Comment on above: Performed By: #### 1 0231, 92193, 7600 #### [facility] [place] [address] Thermoforming Operator: Dylon Cordova MD Cholesterol in HDL [Mass/Vol] 52 mg/dL Normal > OR = 50 [facility] Comment on above: Performed By: #### 1 0231, 02664, 7600 #### [facility] [place] [address] Thermoforming Operator: Dylon Cordova MD Cholesterol in LDL [Mass/Vol] 102 mg/dL High [facility] Comment on above: Result Comment: Refe rence range: <100 Desirable range <100 mg/dL for primary prevention; <70 mg/dL for patients with CHD or diabetic patients with > or = 2 CHD risk factors. LDL-C is now calculated using the Kole calculation, which is a validated novel method providing better accuracy than the Friedewald equation in the estimation of LDL-C. Jhonny SS et al. JILLIAN. 2013;310(19): 5677-2783 (http://education.C[employer]/faq/KGN273) Performed By: #### 1 0231, 16537, 7600 #### [facility] [address], [address] [place] [address] Thermoforming Operator: Dylon Cordova MD Cholesterol.total /Cholesterol in HDL [Mass ratio] 3.3 {ratio} Normal <5.0 [facility] Comment on above: Performed By: #### 1 023, 90509, 7600 #### [facility] [place] [address] Thermoforming Operator: Dylon Cordova MD NON HDL CHOLESTEROL 117 mg/dL (calc) Normal <130 [facility] Comment on above: Result Comment: For patients with diabetes plus 1 major ASCVD risk factor, treating to a non-HDL-C goal of <100 mg/dL (LDL-C of <70 mg/dL) is considered a therapeutic option. Performed By: #### 1 0231, 73023, 7600 #### [facility] [place] [address] Thermoforming Operator: Dylon Cordova MD Triglyceride [Mass/Vol] 66 mg/dL Normal <150 [facility] Comment on above: Performed By: #### 1 230, 50361, 7600 #### [facility] [place] [address] Thermoforming Operator: Dylon Cordova MD TSH+FREE T4on 07-28-2021 Free T4 [Mass/Vol] 1.2 ng/dL Normal 0.8-1.8 [facility] Comment on above: Performed By: #### 1 230, 51747, 7600 #### [facility] [place] [address] Thermoforming Operator: Dylon Cordova MD TSH Qn 0.63 m[IU]/L Normal 0.40-4.50 [facility] Comment on above: Performed By: #### 1 023, 13685, 7600 #### [facility] [place] [address] Thermoforming Operator: Dylon Cordova MD [facility] BILon 017 [facility] * * *Final Report* * *DATE OF EXAM: Feb 13 2017 10:14AM HCW [id number] - [facility] / REASON: abnormal mammogram of left breast * * * * Physician Interpretation * * * *RESULT: #[id number] - [facility] DIAG[facility] BILBILATERAL DIGITAL DIAGNOSTIC MAMMOGRAM WITH CAD: 02/13/2017HISTORY: Abnormal Mammogram Of Left Breast /Patient hand carried outside priors to be digitized.RESULT:TECHNIQU E: The study was acquired using full field digital technology and interpreted from soft copy.Current study was also evaluated with a Computer Aided Detection (CAD).Comparison is made to exam dated: 10/05/2016 mammogram.There are scattered fibroglandular elements in both breasts.There is a metalic foreign body in the left upper outer breast , most likely the residual tip of a wire from the previous surgical excision. Clinical correlation is recommended as to the clinical significance of this in the breast.The patient is status post excisional biopsy left breast in the upper outer quadrant. The left breast has post-operative findings.There is a 0.9 cm oval asymmetry in the left breast middle depth medial region seen on the craniocaudal view only.No other significant masses, calcifications, or other findings are seen in either breast.INCOMPLETE: NEEDS ADDITIONAL IMAGING EVALUATIONThe 0.9 cm oval asymmetry in the left breast is indeterminate. An ultrasound is recommended.#[id number] - [facility] US BREAST LTD LTULTRASOUND OF LEFT BREAST: 02/13/2017RESULT:Comparis on is made to exam dated: 10/05/2016 mammogram.Real-time ultrasound of the left breast was performed. Michelle scale images of the real-time examination were reviewed.There is a benign 0.9 cm x 0.6 cm oval simple cyst in the left breast at 10 o'clock posterior depth 6 cm from the nipple. This oval simple cyst is anechoic. This correlates with mammography findings.IMPRESSION: BENIGN FINDINGThere is no sonographic evidence of malignancy.The 0.9 cm x 0.6 cm oval simple cyst in the left breast is benign.Return to annual mammogram screening schedule is recommended.SUMMARY:The patient is seeing Dr. Arias in consultation today .Gregoria Solis/nisa:02/13/2017 12:46:11Imaging Technologist: Iram MCCARTNEY(R)(M), [facility] Mammogram BI-RADS: 0 Incomplete: needs additional imaging evaluation Ultrasound BI-RADS: 2 Benign findingTranscribed Using Voice RecognitionTranscribe Date/Time: Feb 13 2017 10:02ADictated by: GREGORIA GODWIN MDThis examination was interpreted and the report reviewed and electronically signed by: GREGORIA GODWIN MD on Feb 13 2017 12:46PM [id number] Normal [facility] [employer] BREAST LTD LTon 02-13 [facility] * * *Final Report* * *DATE OF EXAM: Feb 13 2017 11:49AM HCW 0593 - [employer] [facility] / REASON: abnormal mammogram of left breast * * * * Physician Interpretation * * * *RESULT: #[id number] - [facility] DIAGNOSTIC BILBILATERAL DIGITAL DIAGNOSTIC MAMMOGRAM WITH CAD: 02/13/2017HISTORY: Abnormal Mammogram Of Left Breast /Patient hand carried outside priors to be digitized.RESULT:TECHNIQU E: The study was acquired using full field digital technology and interpreted from soft copy.Current study was also evaluated with a Computer Aided Detection (CAD).Comparison is made to exam dated: 10/05/2016 mammogram.There are scattered fibroglandular elements in both breasts.There is a metalic foreign body in the left upper outer breast , most likely the residual tip of a wire from the previous surgical excision. Clinical correlation is recommended as to the clinical significance of this in the breast.The patient is status post excisional biopsy left breast in the upper outer quadrant. The left breast has post-operative findings.There is a 0.9 cm oval asymmetry in the left breast middle depth medial region seen on the craniocaudal view only.No other significant masses, calcifications, or other findings are seen in either breast.INCOMPLETE: NEEDS ADDITIONAL IMAGING EVALUATIONThe 0.9 cm oval asymmetry in the left breast is indeterminate. An ultrasound is recommended.#[id number] - [employer] LTULTRASOUND OF LEFT BREAST: 02/13/2017RESULT:Comparis on is made to exam dated: 10/05/2016 mammogram.Real-time ultrasound of the left breast was performed. Michelle scale images of the real-time examination were reviewed.There is a benign 0.9 cm x 0.6 cm oval simple cyst in the left breast at 10 o'clock posterior depth 6 cm from the nipple. This oval simple cyst is anechoic. This correlates with mammography findings.IMPRESSION: BENIGN FINDINGThere is no sonographic evidence of malignancy.The 0.9 cm x 0.6 cm oval simple cyst in the left breast is benign.Return to annual mammogram screening schedule is recommended.SUMMARY:The patient is seeing Dr. Arias in consultation today .Gregoria Godwin M.D./penrad:02/13/2017 12:46:11Imaging Technologist: Iram MARTINEZ)(Gen), [facility] Mammogram BI-RADS: 0 Incomplete: needs additional imaging evaluation Ultrasound BI-RADS: 2 Benign findingTranscribed Using Voice RecognitionTranscribe Date/Time: Feb 13 2017 10:02ADictated by: GREGORIA GODWIN MDThis examination was interpreted and the report reviewed and electronically signed by: GREGORIA GODWIN MD on Feb 13 2017 12:46PM [id number] Normal [facility] Encounters Encounter Date Encounter Type Care Provider Facility Start: 10-09-2023 End: 10-09-2023 ambulatory [facility] [place] 2] [facility] Start: 07-31-2023 End: 07-31-2023 ambulatory [facility] Start: 07-31-2023 End: 07-31-2023 ambulatory [facility] Start: 05-04-2023 Refill Rowan Harris REMEDIATION PROJECT ENGINEER-PICKER MACHINE OPERATOR Work Phone: [facility] - [facility] Start: 04-10-2023 Refill Venecia Kuns REMEDIATION PROJECT ENGINEER-PICKER MACHINE OPERATOR Work Phone: [facility] - [facility] Comment on above: Hypertension, unspec ified type Start: 06-07-2022 End: 06-07-[address] ALYSHA DAVIS . Facility:[facility] Start: 03-02-[address] JUAN SALGUERO [facility] ity:[facility] Start: 10-26-2021 End: 10-27-[address] JUAN SALGUERO Facility:[facility] Start: 09-19-2021 End: 09-20-[address] ROWAN HARRIS Facility:[facility] Start: 08-19-2021 End: 08-20-[address] JUAN SALGUERO Facility: Start: 07-04-2018 Patient encounter procedure [facility] Facility:[facility] Start: 06-27-2018 Patient encounter procedure [facility] Facility:[facility] Start: 03-29-2017 [facility] Start: 03-05-2017 [facility] Start: 02-12-2017 Ambulatory [facility] Procedures Date Procedure Procedure Detail Performing Clinician Start: 01-09-2023 Adult depression scr eening assessment Rowan Harris REMEDIATION PROJECT ENGINEER-PICKER MACHINE OPERATOR Work Phone: Start: 11-23-2022 Colonoscopy Rowan Harris REMEDIATION PROJECT ENGINEER-PICKER MACHINE OPERATOR Work Phone: Start: 09-19-2021 Mammography Rowan Harris REMEDIATION PROJECT ENGINEER-PICKER MACHINE OPERATOR Work Phone: Start: 12-27-2020 Microscopic observat ion [Identifier] in Cervix by Cyto stain Rowan Harris REMEDIATION PROJECT ENGINEER-PICKER MACHINE OPERATOR Work Phone: Plan of Treatment Date Care Activity Detail Author Start: 11-24-2027 Screening for malignant neoplasm of colon Colonoscopy [facility] [employer] Start: 05-18-2025 DTaP,Tdap and Td Vaccines (3 - Td or Tdap) DTaP,Tdap and Td Vaccines (3 - Td or Tdap) [facility] [employer] [facility] Start: 01-10-2024 Adult BMI Screening Adult BMI Screening [facility] [employer] [facility] Start: 01-10-2024 Depression Screening Depression Screening [facility] Start: 01-10-2024 Tobacco Screening Tobacco Screening [facility] Start: 12-28-2023 Screening for malignant neoplasm of cervix [facility] Start: 09-26-2023 Adult BMI Follow Up Plan Adult BMI Follow Up Plan [facility] Start: 09-19-2022 Screening for malignant neoplasm of breast Mammogram [facility] [employer] [facility] Start: 05-25-2015 Administration of varicella zoster vaccine Zoster (Shingles) Vaccine (1 of 2) [facility] Immunizations Immunization Date Immunization Notes Care Provider Fa cility 02-23-2023 COVID-19, mRNA, LNP- S, PF, 30mcg/0.3mL Dose Rowan Harris REMEDIATION PROJECT ENGINEER-PICKER MACHINE OPERATOR Work Phone: [facility] 01-22-2023 influenza, injectabl e, madin dasha canine kidney, preservative free Rowan Harris REMEDIATION PROJECT ENGINEER-PICKER MACHINE OPERATOR Work Phone: [facility] 01-03-2021 Influenza, injectabl e, Madin Dasha Canine Kidney, preservative free, quadrivalent Rowan Harris REMEDIATION PROJECT ENGINEER-PICKER MACHINE OPERATOR Work Phone: [facility] 12-20-2019 influenza, injectabl e, quadrivalent, preservative free Rowan Harris REMEDIATION PROJECT ENGINEER-PICKER MACHINE OPERATOR Work Phone: [facility] 11-29-2018 influenza, injectabl e, quadrivalent, preservative free Rowan Harris REMEDIATION PROJECT ENGINEER-PICKER MACHINE OPERATOR Work Phone: [facility] 05-19-2015 tetanus toxoid, redu gricelda diphtheria toxoid, and acellular pertussis vaccine, adsorbed Rowan Harris REMEDIATION PROJECT ENGINEER-PICKER MACHINE OPERATOR Work Phone: [facility] 04-28-2014 tetanus toxoid, redu gricelda diphtheria toxoid, and acellular pertussis vaccine, adsorbed Rowan Harris REMEDIATION PROJECT ENGINEER-PICKER MACHINE OPERATOR Work Phone: [facility] 01-02-2014 influenza, seasonal, injectable Rowan Harris REMEDIATION PROJECT ENGINEER-PICKER MACHINE OPERATOR Work Phone: [facility] Payers Date Payer Category Payer Unknown [id number] 1965 Unknown [id number] 2.16.84 [id number] 1965 Unknown [id number] 2.16.84 [id number] 1965 Unknown [id number] 2.16.84 [id number] 1965 Unknown [id number] 2.16.84 [id number] 1965 Unknown [id number] 2.16.84 [id number] 1965 Unknown [id number] 2.16.84 [id number] 1965 Unknown [id number] 2.16.8 [id number] 1965 Unknown [id number] 2.16.8 [id number] 1965 Unknown [id number] 2.16.8 [id number] 1959 Self-pay [id number] 1959 Self-pay 1959 Unknown [id number] Social History Date Type Detail Facility [facility] Start: 11-23-2022 Tobacco use and exposure Smokeless tobacco non-user [facility] Start: 01-09-2023 Alcohol intake Current non-dr pallet stone inserter of alcohol (finding) [facility] Start: 04-08-2020 End: 01-09-2023 Alcohol intake [facility] Start: 04-08-2020 End: 01-09-2023 Tobacco use panel [facility] Adolescent depressio n screening assessment 0 [facility] Start: 08-31-2022 Tobacco Comment Smoked 2 times as a teenager [facility] Start: 1965 Sex Assigned At Not on file [facility] Evaluation note Note Date & Type Note Facility Evaluation note Diagnosis Hypertension, unspecified type documented in this encounter [facility] Instructions Note Date & Type Note Facility Instructions Not on filedocumented in this en counter [facility] Instructions Note Date & Type Note Facility Instructions Not on filedocumented in this en counter [facility] Summary Purpose Family History No Family History Records FoundNo Family History Records FoundNo Family History Records FoundNo Family History Records FoundNo Family History Records FoundNo Family History Records Found Advance Directives No Advanced Directives Records FoundNo Advanced Directives Records FoundNo Advanced Directives Records FoundNo Advanced Directives Records FoundNo Advanced Directives Records FoundNo Advanced Directives Records Found Additional Source Comments INFORMATION SOURCE (unrecogn ized section and content) DATE CREATED AUTHOR 08/20/2017 [facility] DATE CREATED AUTHOR AUTHOR'S ORGANIZ ATION 07/05/2018 [facility] DATE CREATED AUTHOR AUTHOR'S ORGANIZ ATION 07/28/2021 [facility] DATE CREATED AUTHOR AUTHOR'S ORGANIZ ATION 06/15/2022 [facility] DATE CREATED AUTHOR AUTHOR'S ORGANIZ ATION 08/02/2023 [facility] DATE CREATED AUTHOR AUTHOR'S ORGANIZ ATION 10/10/2023 [facility] Reason for Visit (unrecogniz ed section and content) Reason Comments Med Refill Care Teams (unrecognized sec tion and content) Recycling Director Relationship Specialty Start Date End Date [facility] [address] [place] [address] PCP - General Family Medicine 10/26/21 Recycling Director Relationship Specialty Start Date End Date Rowan Harris Rose, [facility] [address] [place] [address] PCP - General Family Medicine 10/26/21 FOR RECORDS PERTAINING TO PATIENTS WHO ARE OR HAVE BEEN ENROLLED IN A CHEMICAL DEPENDENCY/SUBSTANCEABUSE PROGRAM, SOME INFORMATION MAY BE OMITTED. This clinical summary was aggregated from multiple sources. Caution should be exercised in using it in the provision of clinical care. This summary normalizes information from multiple sources, and as a consequence, information in this document may materially change the coding, format and clinical context of patient data. In addition, data may be omitted in some cases. CLINICAL DECISIONS SHOULD BE BASED ON THE PRIMARY CLINICAL RECORDS. [facility] [employer] [facility]. provides no warranty or guarantee of the accuracy or completeness of information in this document.
--- NOTE | 2023-11-27 13:25 | MM_ITS ---
Patient Name: RITO FOREMAN MR#: [id number] : 1965 Exam Date: 11/27/2023 Ordering Doctor: DR Mike Leal . RADIOLOGY REPORT PROCEDURE: MM TOMOSYNTHESIS SCREENING BI COMPARISON: MG MAMM SCREEN 3D ROSSY CAD, 07/12/2020. MG MAMM SCREEN 3D ROSSY CAD, 09/19/2021. INDICATIONS: Screening Calculator Name NCI Breast Cancer Risk Assessment Tool 5 Year Breast Cancer Risk 1.50% Lifetime Breast Cancer Risk 7.80% Personal Breast Cancer No Personal Ovarian Cancer No Treatments None Family Cancers Father with esophageal cancer at age 68; Grandmother-paternal with renal/bladder cancer at age ~85. LOCATION: [facility] BREAST COMPOSITION: The breasts are heterogeneously dense,which may obscure small masses. FINDINGS: DIAGNOSTIC CATEGORY 2--BENIGN FINDING. NO CHANGE FROM COMPARISON. Scattered benign-appearing nodules are present. Scattered benign-appearing calcifications are present. Scattered benign-appearing lymph nodes are present. RIGHT BREAST: No significant suspicious finding. LEFT BREAST: No significant suspicious finding. RECOMMENDATIONS: ROUTINE MAMMOGRAM AND CLINICAL EVALUATION IN 12 MONTHS. PLEASE NOTE: A NORMAL MAMMOGRAM DOES NOT EXCLUDE THE POSSIBILITY OF BREAST CANCER. A CLINICALLY SUSPICIOUS PALPABLE LUMP SHOULD BE BIOPSIED. Dictated by: Moise Person MD on 11/27/2023 at 15:17 Approved by: Moise Person MD on 11/27/2023 at 15:30
== END 2023-11-27 12:49 | disposition home or self-care (01) ==
LOC: MAMMO 12:50
PROVIDERS: PCP Nurse Practitioner Family; Visit Provider Obstetrics & Gynecology
DX: Z12.31 Encounter for screening mammogram for malignant neoplasm of breast (principal); Z80.8 Family history of malignant neoplasm of other organs or systems; Z80.52 Family history of malignant neoplasm of bladder; Z80.51 Family history of malignant neoplasm of kidney
CPT/HCPCS: 77063; 77067

== ENCOUNTER 2023-12-12 19:30 | Outpatient (REF) | payer SELFPAY ==
--- OUTSIDE RECORDS SUMMARY | 2023-12-12 19:34 | XMS_ITS | CCD ---
Author Organization [facility] Care Team Providers Care Electrical Controls Engineer Name Role Phone TOMMY, FADUMO Unavailable Unavailable TOMMY, FADUMO Unavailable Unavailable TOMMY, FADUMO Unavailable Unavailable TOMMY, FADUMO Unavailable Unavailable TOMMY, FADUMO Unavailable Unavailable TOMMY, FADUMO Unavailable Unavailable ANAYELI CASSIDY Admitting Unavailable STEPBALWINDER, ANAYELI Celaya Attending Unavailable STEPANICANAYELI Admitting Unavailable STEPANAYELI BRITT Attending Unavailable SUSAN ., DR ENCARNACION Consulting Unavailable SUSAN ., DR ENCARNACION Admitting Unavailable NADERER, DR JUAN Campa Primary Care Unavailable SUSAN ., DR ENCARNACION Attending Unavailable NADERER, DR JUAN Campa Primary Care Unavailable KUNS, DR ROWAN Culver Admitting Unavailable KUNS, DR ROWAN Culver Attending Unavailable KUNJordyn, DR ROWAN Culver Attending Unavailable STEVEN, DR ROWAN Culver Primary Care Unavailable KUNS, DR ROWAN Culver Admitting Unavailable ZIEBER, DR TIM Culver Consulting Unavailable KUNS, DR ROWAN Culver Consulting Unavailable NADERER, DR JUAN Campa Primary Care Unavailable ZIEBER, DR TIM Culver Consulting Unavailable KUNS, DR ROWAN Culver Attending Unavailable KUNS, DR ROWAN Culver Admitting Unavailable KUNS, DR ROWAN Culver Consulting Unavailable NADERER, DR JUAN Campa Primary Care Unavailable KUNS, DR ROWAN Culver Attending Unavailable KUNS, DR ROWAN Culver Consulting Unavailable KUNJordyn, DR ROWAN Culver Admitting Unavailable Kuns 911 DISPATCHER-Rowan GARCIA Primary Care Provider ROWAN HARRIS Referring Unavailable ROWAN HARRIS Primary Care Unavailable ROWAN HARRIS Attending Unavailable STEVEN, ROWAN MARTINEZ Referring Unavailable STEVEN, ROWAN MARTINEZ Primary Care Unavailable JEREMY WADSWORTH Attending Unavailable JEREMY WADSWORTH Referring Unavailable EJREMY WADSWORTH Primary Care Unavailable JEREMY WADSWORTH Primary Care Unavailable CARA JAMES Attending Unavailable Medications Current Medications Medication Drug Class(es) [...] as acute or chronic] Onset: 07-31-2023 Episodic Conditions associated with dizziness or vertigo (6 sources) Dizziness of unknown cause; Translations: [Dizziness and giddiness] Onset: 04-18-2017 04-18-2017 Episodic Conditions associated with dizziness or vertigo (1 source) Conditions associated with dizziness or vertigo Onset: 12-06-2023 Disorders of lipid metabolism (2 sources) Mixed [...] Problem Classification Problem Date Documented Date Episodic/Chronic Mood disorders (2 sources) Mood disorders Onset: [...] Reference Range Facility CBC AND AUTO DIFFon 12-06-19 ABSOLUTE BASOPHIL 0.0 X10E9/L Normal 0.0-0.2 [facility] Comment on above: Performed By: #### C BCA CMP, 3040-3, 13356-6, 89153-7 #### [facility] ([id number]) [address] [place] [address] 45671 ABSOLUTE NEUTROPHIL 3.1 X10E9/L Normal 1.5-6.6 [facility] Comment on above: Performed By: #### Yomi BCA, CMP, 3040-3, , 10246-8 #### [facility] ([id number]) [address] [place] [address] 25611 Basophils/100 WBC (Bld) 0.4 % Normal [facility] Comment on above: Performed By: #### Yomi BCA, CMP, 3040-3, 94863-8, 61307-2 #### [facility] ([id number]) [address] [place] [address] 12484 Eosinophils (Bld) [#/Vol] 0.1 10*3/uL Normal 0.0-0.4 [facility] Comment on above: Performed By: #### Yomi BCA, CMP, 3040-3, 44807-3, 87779-3 #### [facility] ([id number]) [address] [place] [address] 73359 Eosinophils/100 WBC (Bld) 2.1 % Normal [facility] Comment on above: Performed By: #### C BCA, CMP, 3040-3, 79776-7, 77574-6 #### [facility] ([id number]) [address] [place] [address] 65543 Erythrocyte distribution width (RBC) [Ratio] 13.2 % Normal 11.5-15.0 [facility] Comment on above: Performed By: #### C BCA, CMP, 3040-3, 64907-8, 48622-3 #### [facility] ([id number]) [address] [place] [address] 19655 Hematocrit (Bld) [Volume fraction] 38.3 % Normal 35-47 [facility] Comment on above: Performed By: #### C BCA, CMP, 3040-3, , 00382-0 #### [facility] ([id number]) [address] [place] [address] 39458 Hemoglobin (Bld) [Mass/Vol] 12.8 g/dL Normal 11.7-15.5 [facility] Comment on above: Performed By: #### C BCA, CMP, 3040-3, , 54866-1 #### [facility] ([id number]) [address] [place] [address] 89025 Lymphocytes (Bld) [#/Vol] 1.4 10*3/uL Normal 1.0-3.5 [facility] Comment on above: Performed By: #### C BCA, CMP, 3040-3, 98570-7, 46635-9 #### [facility] ([id number]) [address] [place] [address] 46788 Lymphocytes/100 WBC (Bld) 27.5 % Normal [facility] Comment on above: Performed By: #### C BCA, CMP, 3040-3, 98757-8, 28291-2 #### [facility] ([id number]) [address] [place] [address] 31953 MCH (RBC) [Entitic mass] 30.0 pg Normal 27-34 [facility] Comment on above: Performed By: #### C EDUAROD CMP, 0-3, , 40048-0 #### [facility] ([id number]) [address] [place] [address] 54473 MCHC (RBC) [Mass/Vol] 33.2 g/dL Normal 32-36 [facility] Comment on above: Performed By: #### Yomi CLARK, CMP, 3039-04, , 28040-8 #### [facility] ([id number]) [address] [place] [address] 45851 MCV (RBC) [Entitic vol] 90 fL Normal 80-100 [facility] Comment on above: Performed By: #### Yomi CLARK, CMP, 3039-04, , 80593-1 #### [facility] ([id number]) [address] [place] [address] 13006 Monocytes (Bld) [#/Vol] 0.4 10*3/uL Normal 0-0.9 [facility] Comment on above: Performed By: #### Yomi CLARK, CMP, 3039-04, , 98960-2 #### [facility] ([id number]) [address] [place] [address] 73286 Monocytes/100 WBC (Bld) 8.3 % Normal [facility] Comment on above: Performed By: #### Yomi BCA, CMP, 3039-04, , 44352-1 #### [facility] ([id number]) [address] [place] [address] 62737 Neutrophils/100 WBC (Bld) 61.7 % Normal [facility] Comment on above: Performed By: #### Yomi BCA, CMP, 3040-3, , 92311-5 #### [facility] ([id number]) [address] [place] [address] 46797 Platelet mean volume (Bld) [Entitic vol] 10.1 fL Normal 7-12 [facility] Comment on above: Performed By: #### C BCA, CMP, 3040-3, , 08666-8 #### [facility] ([id number]) [address] [place] [address] 31563 Platelets (Bld) [#/Vol] 208 10*3/uL Normal 150-450 [facility] Comment on above: Performed By: #### C BCA, CMP, 3040-3, , 30016-9 #### [facility] ([id number]) [address] [place] [address] 40610 RBC COUNT 4.24 X10E12/L Normal 3.80-5.20 [facility] Comment on above: Performed By: #### C BCA, CMP, 3040-3, , 44476-8 #### [facility] ([id number]) [address] [place] [address] 01746 WBC (Bld) [#/Vol] 5.1 10*3/uL Normal 4.0-11.0 [facility] Comment on above: Performed By: #### C BCA, CMP, 3040-3, , 14101-4 #### [facility] ([id number]) [address] [place] [address] 34481 COMPREHENSIVE METABOLIC PANE Kalpesh 12-06-2023 Albumin [Mass/Vol] 3.9 g/dL Normal 3.2-5.3 [facility] Comment on above: Performed By: #### C BCA, CMP, 3040-3, 64140-0, 98245-7 #### [facility] ([id number]) [address] [place] [address] 18010 ALP [Catalytic activity/Vol] 56 U/L Normal 39-130 [facility] Comment on above: Performed By: #### C BCA, CMP, 3040-3, 48100-8, 47835-0 #### [facility] ([id number]) [address] [place] [address] 65219 ALT [Catalytic activity/Vol] 15 U/L Normal 0-31 [facility] Comment on above: Performed By: #### C BCA, CMP, 3040-3, 23660-3, 25532-1 #### [facility] ([id number]) [address] [place] [address] 41872 Anion gap [Moles/Vol] 7 mmol/L Normal 5-15 [facility] Comment on above: Performed By: #### C BCA, CMP, 3040-3, , 11316-0 #### [facility] ([id number]) [address] [place] [address] 82470 AST [Catalytic activity/Vol] 17 U/L Normal 0-41 [facility] Comment on above: Performed By: #### C BCA, CMP, 3040-3, , 51989-9 #### [facility] ([id number]) [address] [place] [address] 15237 Bilirubin [Mass/Vol] 0.6 mg/dL Normal 0.3-1.2 [facility] Comment on above: Performed By: #### C BCA, CMP, 3040-3, , 78141-7 #### [facility] ([id number]) [address] [place] [address] 43387 Calcium [Mass/Vol] 8.6 mg/dL Normal 8.5-10.5 [facility] Comment on above: Performed By: #### C BCA, CMP, 3040-3, , 15899-2 #### [facility] ([id number]) [address] [place] [address] 62936 Chloride [Moles/Vol] 107 mmol/L Normal 98-109 [facility] Comment on above: Performed By: #### C EDUARDO, CMP, 3040-3, 85174-3, 92490-2 #### [facility] ([id number]) [address] [place] [address] 47827 CO2 [Moles/Vol] 23 mmol/L Normal 22-32 [facility] Comment on above: Performed By: #### C EDUARDO, CMP, 0-3, , 26446-4 #### [facility] ([id number]) [address] [place] [address] 47177 Creatinine [Mass/Vol] 0.48 mg/dL Normal 0.40-1.00 [facility] Comment on above: Result Comment: METH OD TRACEABLE TO IDMS STANDARD Performed By: #### C EDUARDO, CMP, 0-3, , 66799-0 #### [facility] ([id number]) [address] [place] [address] 99647 eGFR (CKD-EPI) NON-RACE DEPENDENT >90 Normal >59 [facility] Comment on above: Result Comment: Reported eGFR is based on the CKD-EPI 2020 equation that does not use a race coefficient. Performed By: #### C BCA, CMP, 3040-3, 54569-8, 15239-6 #### [facility] ([id number]) [address] [place] [address] 27090 Glucose [Mass/Vol] 116 mg/dL High 65-99 [facility] Comment on above: Performed By: #### C EDUARDO, CMP, 3040-3, 36551-1, 82099-9 #### [facility] ([id number]) [address] [place] [address] Potassium [Moles/Vol] 3.9 mmol/L Normal 3.5-5.0 [facility] Comment on above: Performed By: #### C EDUARDO, [facility], 3040-3, 32905-9, 15153-6 #### [facility] ([id number]) [address] [place] [address] 19137 Protein [Mass/Vol] 7.3 g/dL Normal 6.0-8.0 [facility] Comment on above: Performed By: #### C EDUARDO, [facility], 3040-3, , 37165-0 #### [facility] ([id number]) [address] [place] [address] 94762 Sodium [Moles/Vol] 137 mmol/L Normal 134-146 [facility] Comment on above: Performed By: #### C EDUARDO, [facility], 0-3, , 32013-5 #### [facility] ([id number]) [address] [place] [address] 69272 Urea nitrogen [Mass/Vol] 12 mg/dL Normal 5-23 [facility] Comment on above: Performed By: #### C EDUARDO, [facility], 3040-3, , 77549-1 #### [facility] ([id number]) [address] [place] [address] 22198 LIPASEon 12-06-2023 Lipase [Catalytic activity/Vol] 24 U/L Normal 17-40 [facility] Comment on above: Performed By: #### C EDUARDO, [facility], 3040-3, , 42885-0 #### [facility] ([id number]) [address] [place] [address] 42697 MAGNESIUMon 12-06-2023 Magnesium [Mass/Vol] 1.9 mg/dL Normal 1.8-2.6 [facility] Comment on above: Performed By: #### C [facility], [facility], 3040-3, 97248-6, 80794-2 #### [facility] ([id number]) [address] [facility] [place] [address] SARS/FLU A[facility] SARS/FLU A+B/RSV by NAAT/Molecular FLU A PCR Negative (qualifier value) FLU B PCR Negative (qualifier value) RSV by PCR Negative (qualifier value) SARS CoV 2 Not detected (qualifier value) NOTE The Xpert Xpress SARS-CoV-2/Flu/RSV Plus test is a rapid, multiplexed real-time RT-PCR test intended for the simultaneous qualitative detection and differentiation of SARS-CoV-2, influenza A, influenza B and respiratory syncytial virus (RSV) viral RNA from individuals suspected of respiratory viral infection consistent with COVID-19 by their healthcare provider. This test has not been validated in asymptomatic patients. The Xpert Xpress SARS-CoV-2 test is intended for use by qualified and trained operators who are performing tests using either [employer] DX or Matcha systems and is limited to laboratories that meet the CLIA requirements to perform high and moderate complexity tests. The Xpert Xpress SARS-CoV-2/Flu/RSV Plus is only for use under the Food and Drug Administration's Emergency Use Authorization. Results are for the simultaneous detection and differentiation of SARS-CoV-2, influenza A, influenza B and RSV nucleic acids in clinical specimens. SARS-CoV-2, influenza A, influenza B and RSV RNA identified by this test are generally detectable in upper respiratory samples during the acute phase of infection. Positive results are indicative of the presence of the identified virus, but do not rule out bacterial infection or co-infection with other pathogens not detected by this test. Clinical correlation with patient history and other diagnostic information is necessary to determine patient infection status. The agent detected may not be the definite cause of disease. Negative results do not preclude SARS-CoV-2, influenza A, influenza B and RSV infection and should not be used as the sole basis for treatment or other patient management decisions. Negative results must be combined with clinical observations, patient history and epidemiological information. An Invalid result may occur with specimen-associated inhibition unable to be resolved with specimen repeat. Fact Sheet for Healthcare Providers: https://www.fda.gov/media /655276/download Fact Sheet for Patients: https://www.fda.gov/media /047125/download Normal [facility] Comment on above: Performed By: #### C OVFLR #### [facility] ([id number]) [address] [place] [address] [place] [address] Troponin I.cardiac High sens itivity method [Mass/Vol]on 12-06-2023 1 HOUR TROP I, HIGH SENSITIVITY 2 ng/L Normal <16 [facility] Comment on above: Performed By: #### 8 9579-7 #### [facility] ([id number]) [address] [place] [address], [place] [address] TROPONIN I, HIGH SENSITIVITY <2 Normal <16 [facility] Comment on above: Performed By: #### C BCA, CMP, 3040-3, 47048-3, 61168-1 #### [facility] ([id number]) [address] [place] [address], [place] [address] URN MACROSCOPIC NURon 2023 BILIRUBIN CAROLINE Negative Normal NEG [facility] Comment on above: Performed By: #### N UM #### [facility] ([id number]) [address] [place] [address] [place] [address] BLOOD/HGB CAROLINE Trace Abnormal NEG [facility] Comment on above: Performed By: #### N UM #### [facility] ([id number]) [address] [place] [address] [place] [address] GLUCOSE CAROLINE Negative Normal NEG [facility] Comment on above: Performed By: #### N UM #### [facility] ([id number]) [address] [place] [address] [place] [address] KETONES CAROLINE Negative Normal NEG [facility] Comment on above: Performed By: #### N UM #### [facility] ([id number]) [address] [place] [address] 53561 LEUKOCYTE ESTERASE CAROLINE Negative Normal NEG [facility] Comment on above: Performed By: #### N UM #### [facility] ([id number]) [address] [place] [address] 98954 NITRITE CAROLINE Negative Normal NEG [facility] Comment on above: Performed By: #### N UM #### [facility] ([id number]) [address] [place] [address] 55364 PH CAROLINE 7.0 Normal 5.0-8.5 [facility] Comment on above: Performed By: #### N UM #### [facility] ([id number]) [address] [place] [address] 79709 PROTEIN CAROLINE Negative Normal NEG [facility] Comment on above: Performed By: #### N UM #### [facility] ([id number]) [address] [place] [address] 44618 SPECIFIC GRAVITY CAROLINE 1.020 Normal 1.003-1.035 [facility] Comment on above: Performed By: #### N UM #### [facility] ([id number]) [address] [place] [address] 47140 UROBILINOGEN CAROLINE 0.2 eu/dL Normal <1.1 [facility] Comment on above: Performed By: #### N UM #### [facility] ([id number]) [address] [place] [address] 06920 XR CHEST 1 VWon 12-06-2023 XR CHEST 1 VW XR CHEST 1 VW Single view chest History: Dizziness, lightheaded Comparison: None Findings: Single portable view of the chest. Cardiomediastinal silhouette and pulmonary vasculature are within normal limits. Lungs and pleural space are clear. There is no pleural effusion or pneumothorax. Impression: No acute cardiopulmonary process. Finalized by Tamir Galloway on 12/06/2023 9:56 AM Normal [facility] CBC AND AUTO DIFFon 07-31-19 24 ABSOLUTE BASOPHIL 0.0 X10E9/L Normal 0.0-0.2 [facility] Comment on above: Performed By: #### C EDUARDO CMP, THYR #### [facility] ([id number]) [address], [address] [place] [address] ABSOLUTE NEUTROPHIL 2.8 X10E9/L Normal 1.5-6.6 [facility] Comment on above: Performed By: #### C BCA, CMP, THYR #### [facility] ([id number]) [address], [address] [place] [address] Basophils/100 WBC (Bld) 0.6 % Normal [facility] Comment on above: Performed By: #### C BCA, CMP, THYR #### [facility] ([id number]) [address], [address] [place] [address] Eosinophils (Bld) [#/Vol] 0.2 10*3/uL Normal 0.0-0.4 [facility] Comment on above: Performed By: #### C BCA, CMP, THYR #### [facility] ([id number]) [address], [address] [place] [address] Eosinophils/100 WBC (Bld) 3.3 % Normal [facility] Comment on above: Performed By: #### C BCA, CMP, THYR #### [facility] ([id number]) [address], [address] [place] [address] Erythrocyte distribution width (RBC) [Ratio] 13.0 % Normal 11.5-15.0 [facility] Comment on above: Performed By: #### C BCA, CMP, THYR #### [facility] ([id number]) [address], [address] [place] [address] Hematocrit (Bld) [Volume fraction] 38.4 % Normal 35-47 [facility] Comment on above: Performed By: #### C BCA, CMP, THYR #### [facility] ([id number]) [address], [address] [place] [address] Hemoglobin (Bld) [Mass/Vol] 12.7 g/dL Normal 11.7-15.5 [facility] Comment on above: Performed By: #### C BCA, CMP, THYR #### [facility] ([id number]) [address], [facility] [address] [place] [address] Lymphocytes (Bld) [#/Vol] 2.2 10*3/uL Normal 1.0-3.5 [facility] Comment on above: Performed By: #### C BCA, CMP, THYR #### [facility] ([id number]) [address], [facility] [address] [place] [address] Lymphocytes/100 WBC (Bld) 37.9 % Normal [facility] Comment on above: Performed By: #### C BCA, CMP, THYR #### [facility] ([id number]) [address], [address] [place] [address] MCH (RBC) [Entitic mass] 29.7 pg Normal 27-34 [facility] Comment on above: Performed By: #### C BCA, CMP, THYR #### [facility] ([id number]) [address] [address] [place] [address] MCHC (RBC) [Mass/Vol] 33.0 g/dL Normal 32-36 [facility] Comment on above: Performed By: #### C BCA, CMP, THYR #### [facility] ([id number]) [address] [address] [place] [address] MCV (RBC) [Entitic vol] 90 fL Normal 80-100 [facility] Comment on above: Performed By: #### C BCA, CMP, THYR #### [facility] ([id number]) [address], [address] [place] [address] Monocytes (Bld) [#/Vol] 0.6 10*3/uL Normal 0-0.9 [facility] Comment on above: Performed By: #### C BCA, CMP, THYR #### [facility] ([id number]) [address], [address] [place] [address] Monocytes/100 WBC (Bld) 10.3 % Normal [facility] Comment on above: Performed By: #### C BCA, CMP, THYR #### [facility] ([id number]) [address], [address] [place] [address] Neutrophils/100 WBC (Bld) 47.9 % Normal [facility] Comment on above: Performed By: #### C BCA, CMP, THYR #### [facility] ([id number]) [address], [address] [place] [address] Platelet mean volume (Bld) [Entitic vol] 10.0 fL Normal 7-12 [facility] Comment on above: Performed By: #### C BCA, CMP, THYR #### [facility] ([id number]) [address], [address] [place] [address] Platelets (Bld) [#/Vol] 244 10*3/uL Normal 150-450 [facility] Comment on above: Performed By: #### C BCA, CMP, THYR #### [facility] ([id number]) [address] [place] [address] RBC COUNT 4.27 X10E12/L Normal 3.80-5.20 [facility] Comment on above: Performed By: #### C BCA, CMP, THYR #### [facility] ([id number]) [address], [address] [place] [address] WBC (Bld) [#/Vol] 5.9 10*3/uL Normal 4.0-11.0 [facility] Comment on above: Performed By: #### C BCA, CMP, THYR #### [facility] ([id number]) [address], [address] [place] [address] COMPREHENSIVE METABOLIC PANE [facility] 07-31-2023 Albumin [Mass/Vol] 4.0 g/dL Normal 3.2-5.3 [facility] Comment on above: Performed By: #### C BCA, CMP, THYR #### [facility] ([id number]) [address], [address] [place] [address] ALP [Catalytic activity/Vol] 54 U/L Normal 39-130 [facility] Comment on above: Performed By: #### C BCA, CMP, THYR #### [facility] ([id number]) [address], [address] [place] [address] ALT [Catalytic activity/Vol] 20 U/L Normal 0-31 [facility] Comment on above: Performed By: #### C BCA, CMP, THYR #### [facility] ([id number]) [address], [address] [place] [address] Anion gap [Moles/Vol] 9 mmol/L Normal 5-15 [facility] Comment on above: Performed By: #### C BCA, CMP, THYR #### [facility] ([id number]) [address], [address] [place] [address] AST [Catalytic activity/Vol] 20 U/L Normal 0-41 [facility] Comment on above: Performed By: #### C BCA, CMP, THYR #### [facility] ([id number]) [address], [address] [place] [address] Bilirubin [Mass/Vol] 0.7 mg/dL Normal 0.3-1.2 [facility] Comment on above: Performed By: #### C BCA, CMP, THYR #### [facility] ([id number]) [address], [address] [place] [address] Calcium [Mass/Vol] 9.1 mg/dL Normal 8.5-10.5 [facility] Comment on above: Performed By: #### C BCA, CMP, THYR #### [facility] ([id number]) [address], [facility] [address] [place] [address] Chloride [Moles/Vol] 106 mmol/L Normal 98-109 [facility] Comment on above: Performed By: #### C BCA, CMP, THYR #### [facility] ([id number]) [address], [facility] [address] [place] [address] CO2 [Moles/Vol] 27 mmol/L Normal 22-32 [facility] Comment on above: Performed By: #### C BCA, CMP, THYR #### [facility] ([id number]) [address] [address] Creatinine [Mass/Vol] 0.69 mg/dL Normal 0.40-1.00 [facility] Comment on above: Result Comment: METH OD TRACEABLE TO IDMS STANDARD Performed By: #### C BCA, CMP, THYR #### [facility] LAB ([id number]) [address] [place] [address] eGFR (CKD-EPI) NON-RACE DEPENDENT >90 Normal >59 [facility] Comment on above: Result Comment: Reported eGFR is based on the CKD-EPI 2020 equation that does not use a race coefficient. Performed By: #### C BCA, CMP, THYR #### [facility] ([id number]) [address] [place] [address] Glucose [Mass/Vol] 95 mg/dL Normal 65-99 [facility] Comment on above: Performed By: #### C BCA, CMP, THYR #### [facility] ([id number]) [address] [place] [address] Potassium [Moles/Vol] 3.6 mmol/L Normal 3.5-5.0 [facility] Comment on above: Performed By: #### C BCA, CMP, THYR #### [facility] ([id number]) [address] [place] [address] Protein [Mass/Vol] 7.3 g/dL Normal 6.0-8.0 [facility] Comment on above: Performed By: #### C BCA, CMP, THYR #### [facility] ([id number]) [address] [place] [address] Sodium [Moles/Vol] 142 mmol/L Normal 134-146 [facility] Comment on above: Performed By: #### C BCA, CMP, THYR #### [facility] ([id number]) [address] [place] [address] Urea nitrogen [Mass/Vol] 10 mg/dL Normal 5-23 [facility] Comment on above: Performed By: #### C BCA, CMP, THYR #### [facility] ([id number]) [address] [place] [address] THYROID PROFILEon 07-31-2023 Free T4 [Mass/Vol] 1.10 ng/dL Normal 0.61-1.60 [facility] Comment on above: Performed By: #### C BCA, CMP, THYR #### [facility] ([id number]) [address] [place] [address] TSH 0.36 uIU/mL Low 0.49-4.67 [facility] Comment on above: Performed By: #### C BCA, CMP, THYR #### [facility] ([id number]) [address] [place] [address] PAP ACOG PANEL 2: 30 to 65on 06-15-2022 . . Normal [facility] Comment on above: Result Comment: Perf ormed at: WB Performed By: #### 4 [id number] #### [facility] Laboratory [address] [place] [address] Dr. Keke Malhotra Age Gdln ACOG Testing 30-65 [facility] Comment on above: Performed By: #### 4 [id number] #### [facility] [address] [address] [address] Keke Malhotra DIAGNOSIS: Comment Normal [facility] Comment on above: Result Comment: NEGA TIVE FOR INTRAEPITHELIAL LESION OR MALIGNANCY. Performed at: WB Performed By: #### 4 [id number] #### [facility] [address] [place] [address] Dr. Keke Malhotra HPV Aptima Negative Normal Negative [facility] Comment on above: Result Comment: This nucleic acid amplification test detects fourteen high-risk HPV types (16,18,31,33,35,39,45,51,52,56,58,59,66,68) without differentiation. Performed at: =G Performed By: #### 4 [id number] #### [facility] [address] [address] [address] Keke Malhotra HPV Genotype Reflex Comment [facility] Comment on above: Result Comment: Crit eria not met, HPV Genotype not performed. Performed at: WB Performed By: #### 4 [id number] #### [facility] [address] [place] [address] Dr. Keke Malhotra Methodology: Comment Normal [facility] Comment on above: Result Comment: This liquid based ThinPrep(R) pap test was screened with the use of an image guided system. Performed at: WB Performed By: #### 4 [id number] #### [facility] [address] [place] [address] Dr. Keke Malhotra Note: Comment Normal [facility] Comment on above: Result Comment: The Pap smear is a screening test designed to aid in the detection of premalignant and malignant conditions of the uterine cervix. It is not a diagnostic procedure and should not be used as the sole means of detecting cervical cancer. Both false-positive and false-negative reports do occur. . Performed at: WB Performed By: #### 4 [id number] #### [facility] [address] [address] [address] Keke Malhotra Performed by: Comment Normal [facility] Comment on above: Result Comment: Gina Saleem, Equipment Processer Storage (ASCP) Performed at: WB Performed By: #### 4 [id number] #### [facility] [address] [address] [address] Keke Malhotra Specimen adequacy: Comment Normal [facility] Comment on above: Result Comment: Sati sfactory for evaluation. No endocervical component is identified. Performed at: WB Performed By: #### 4 [id number] #### [facility] [address] [place] [address] Dr. Keke Malhotra US PELVIS AND TRANSVAGon [...] by: TIM ALBRIGHT Date: 2021-10-27 07:45 Normal [facility] MG MAMM SCREEN 3D ROSSY CADon 09-19-2021 MG MAMM SCREEN 3D ROSSY CAD Patient: RITO FOREMAN Exam Date: 09/19/2021 : 1965 Gender:F Ordering : DR ROWAN HARRIS Admission #: [id number] Family : Order #: [id number] CLICK HERE TO VIEW EXAM RADIOLOGY REPORT [...] renal/bladder cancer at age 85. LOCATION: [facility] BREAST COMPOSITION: Heterogeneously dense,which may obscure small [...] M.D. on 09/19/2021 at 15:48 Normal [facility] ECHOCARDIO M/2D COMPLETEon 0 08-19-2021 ECHOCARDIO M/2D COMPLETE Patient: RITO FOREMAN Exam Date: 08/19/2021 : 1965 Gender:F Ordering : DR ROWAN HARRIS Admission #: [id number] Family : Order #: [id number] CLICK HERE TO VIEW EXAM ECHOCARDIOGRAM REPORT [...] Area(A4C): 21.70 cm2 Left Atrium Systolic Volume(A2C): 11448 mm3 Left Atrium Systolic Volume(A4C): 18282 mm3 Mitral Valve MV E to A Ratio: 0.80 Deceleration Boone: 2280 mm/s2 Mitral Valve A-Wave Peak Velocity: [...] M.D. on 08/22/2021 at 12:40 Normal [facility] COMPREHENSIVE METABOLIC PANE Kalpesh 07-28-2021 Albumin [Mass/Vol] 4.1 g/dL Normal 3.6-5.1 [facility] Comment on above: Performed By: #### 1 0231, 52449, 7600 #### [facility] of [address], [address] [place] [address] Locomotive Crane Operator Helper: Dylon Cordova MD Albumin/Globulin [Mass ratio] 1.4 {ratio} Normal 1.0-2.5 [facility] Comment on above: Performed By: #### 1 0231, 72837, 7600 #### [facility] of [address], [address] [place] [address] Locomotive Crane Operator Helper: Dylon Cordova MD ALP [Catalytic activity/Vol] 61 U/L Normal 37-153 [facility] Comment on above: Performed By: #### 1 0231, 79781, 7600 #### [facility] of [address], [address] [place] [address] Locomotive Crane Operator Helper: Dylon Cordova MD ALT [Catalytic activity/Vol] 16 U/L Normal 6-29 [facility] Comment on above: Performed By: #### 1 0231, 21202, 7600 #### [facility] of [address], [address] [place] [address] Locomotive Crane Operator Helper: Dylon Cordova MD AST [Catalytic activity/Vol] 16 U/L Normal 10-35 [facility] Comment on above: Performed By: #### 1 0231, 62817, 7600 #### [facility] of [address], [address] [place] [address] Locomotive Crane Operator Helper: Dylon Cordova MD Bilirubin [Mass/Vol] 0.6 mg/dL Normal 0.2-1.2 [facility] Comment on above: Performed By: #### 1 0231, 98605, 7600 #### [facility] of [address], [address] [place] [address] Locomotive Crane Operator Helper: Dylon Cordova MD BUN/CREATININE RATIO NOT APPLICABLE Normal 6-22 [facility] Comment on above: Performed By: #### 1 0231, 86365, 7600 #### [facility] [address], [address] [place] [address] Locomotive Crane Operator Helper: Dylon Cordova MD Calcium [Mass/Vol] 9.1 mg/dL Normal 8.6-10.4 [facility] Comment on above: Performed By: #### 1 0231, 82123, 7600 #### [facility] of [address], [address] [place] [address] Locomotive Crane Operator Helper: Dylon Cordova MD Chloride [Moles/Vol] 106 mmol/L Normal 98-110 [facility] Comment on above: Performed By: #### 1 0231, 35737, 7600 #### [facility] [address], [address] [place] [address] Locomotive Crane Operator Helper: Dylon Cordova MD CO2 [Moles/Vol] 24 mmol/L Normal 20-32 [facility] Comment on above: Performed By: #### 1 0231, 05157, 7600 #### [facility] [address], [address] [place] [address] Locomotive Crane Operator Helper: Dylon Cordova MD Creatinine [Mass/Vol] 0.67 mg/dL Normal 0.50-1.05 [facility] Comment on above: Result Comment: For patients >49 years of age, the reference limit for Creatinine is approximately 13% higher for people identified as -Fijian. Performed By: #### 1 0231, 92371, 7600 #### [facility] [address], [address] [place] [address] Locomotive Crane Operator Helper: Dylon Cordova MD eGFR NON-AFR. GUATEMALAN 98 mL/min/1.73m2 Normal > OR = 60 [facility] Comment on above: Performed By: #### 1 0231, 29474, 7600 #### [facility] [address], [address] [place] [address] Locomotive Crane Operator Helper: Dylon Cordova MD GFR/1.73 sq M.predicted among blacks MDRD (S/P/Bld) [Vol rate/Area] 114 mL/min/{1.73_m2} Normal > OR = 60 [facility] Comment on above: Performed By: #### 1 0231, 82609, 7600 #### [facility] [address], [address] [place] [address] Locomotive Crane Operator Helper: Dylon Cordova MD Globulin (S) [Mass/Vol] 2.9 g/dL Normal 1.9-3.7 [facility] Comment on above: Performed By: #### 1 0231, 98164, 7600 #### [facility] [address] [place] [address] Locomotive Crane Operator Helper: Dylon Cordova MD Glucose [Mass/Vol] 92 mg/dL Normal 65-99 [facility] Comment on above: Result Comment: Fasting reference interval Performed By: #### 1 0231, 62277, 7600 #### [facility] of [address], [address] [place] [address] Locomotive Crane Operator Helper: Dylon Cordova MD Potassium [Moles/Vol] 4.0 mmol/L Normal 3.5-5.3 [facility] Comment on above: Performed By: #### 1 0231, 66354, 7600 #### [facility] [place] [address] Locomotive Crane Operator Helper: Dylon Cordova MD Protein [Mass/Vol] 7.0 g/dL Normal 6.1-8.1 [facility] Comment on above: Performed By: #### 1 0231, 60421, 7600 #### [facility] of [address] [place] [address] Locomotive Crane Operator Helper: Dylon Cordova MD Sodium [Moles/Vol] 139 mmol/L Normal 135-146 [facility] Comment on above: Performed By: #### 1 0231, 50459, 7600 #### [facility] of [address], [address] [place] [address] Locomotive Crane Operator Helper: Dylon Cordova MD Urea nitrogen [Mass/Vol] 10 mg/dL Normal 7-25 [facility] Comment on above: Performed By: #### 1 0231, 14808, 7600 #### [facility] [address], [address] [place] [address] Locomotive Crane Operator Helper: Dylon Cordova MD LIPID PANEL, [facility] 0 Cholesterol [Mass/Vol] 169 mg/dL Normal <200 [facility] Comment on above: Performed By: #### 1 0231, 75312, 7600 #### [facility] [place] [address] Locomotive Crane Operator Helper: Dylon Cordova MD Cholesterol in HDL [Mass/Vol] 52 mg/dL Normal > OR = 50 [facility] Comment on above: Performed By: #### 1 0231, 25596, 7600 #### [facility] [address], [address] [place] [address] Locomotive Crane Operator Helper: Dylon Cordova MD Cholesterol in LDL [Mass/Vol] [...] equation in the estimation of LDL-C. Jhonny SEQUEIRA et al. JILLIAN. 2013;310(19): 7359-0087 (http://education.[address].Keldelice/faq/KOL252) Performed By: #### 1 0231, 03077, 7600 #### [facility] [address], [address] [place] [address] Locomotive Crane Operator Helper: Dylon Cordova MD Cholesterol.total /Cholesterol in HDL [Mass ratio] 3.3 {ratio} Normal <5.0 [facility] Comment on above: Performed By: #### 1 0231, 27355, 7600 #### [facility] [address] [place] [address] Locomotive Crane Operator Helper: Dylon Cordova MD NON HDL CHOLESTEROL 117 mg/dL (calc) Normal <130 [facility] Comment on above: Result Comment: For patients with diabetes plus 1 major ASCVD risk factor, treating to a non-HDL-C goal of <100 mg/dL (LDL-C of <70 mg/dL) is considered a therapeutic option. Performed By: #### 1 0231, 76734, 7600 #### [facility] [address] [place] [address] Locomotive Crane Operator Helper: Dlyon Cordova MD Triglyceride [Mass/Vol] 66 mg/dL Normal <150 [facility] Comment on above: Performed By: #### 1 0231, 61019, 7600 #### [facility] [place] [address] Locomotive Crane Operator Helper: Dylon Cordova MD TSH+FREE T4on 07-28-2021 Free T4 [Mass/Vol] 1.2 ng/dL Normal 0.8-1.8 [facility] Comment on above: Performed By: #### 1 0231, 27156, 7600 #### [facility] [place] [address] Locomotive Crane Operator Helper: Dylon Cordova MD TSH Qn 0.63 m[IU]/L Normal 0.40-4.50 [facility] Comment on above: Performed By: #### 1 0231, 61206, 7600 #### [facility] [place] [address] Locomotive Crane Operator Helper: Dylon Cordova MD [facility] DIAGNOSTIC BILon 017 [facility] DIAGNOSTIC ROSSY * * *Final Report* * *DATE OF EXAM: Feb 13 2017 10:14AM HCW 0620 - [facility] DIAGNOSTIC ROSSY / REASON: abnormal mammogram of left breast * * * * Physician Interpretation * * * *RESULT: #[id number] - [facility] DIAGNOSTIC BILBILATERAL DIGITAL DIAGNOSTIC MAMMOGRAM WITH CAD: [...] left breast is indeterminate. An ultrasound is recommended.#[id number] - [facility] US BREAST LTD LTULTRASOUND OF LEFT BREAST: [...] consultation today .Gregoria Solis/nisa:02/13/2017 12:46:11Imaging Technologist: Iram MCCARTNEY(Palomo)(M), [facility] Mammogram BI-RADS: 0 Incomplete: needs additional imaging evaluation Ultrasound BI-RADS: 2 Benign findingTranscribed Using Voice RecognitionTranscribe Date/Time: Feb 13 2017 10:02ADictated by: GREGORIA GODWIN MDThis examination was interpreted and the report reviewed and electronically signed by: GREGORIA GODWIN MD on Feb 13 2017 12:46PM [id number] Normal [facility] [employer] BREAST LTD LTon 02-13 [facility] [employer] BREAST LTD LT * * *Final Report* * *DATE OF EXAM: Feb 13 2017 11:49AM HCW 0593 - [facility] Tempo AI LT / REASON: abnormal mammogram of left breast * * * * Physician Interpretation * * * *RESULT: #[id number] - [facility] DIAGNOSTIC BILBILATERAL DIGITAL DIAGNOSTIC MAMMOGRAM WITH CAD: [...] left breast is indeterminate. An ultrasound is recommended.#[id number] - [facility] Tempo AI LTULTRASOUND OF LEFT BREAST: 02/13/2017RESULT:Comparis on is [...] seeing Dr. Arias in consultation today .Gregoria Solis/penrad:02/13/2017 12:46:11Imaging Technologist: Iram MARTINEZ)(M), [facility] Mammogram BI-RADS: 0 Incomplete: needs additional imaging evaluation Ultrasound BI-RADS: 2 Benign findingTranscribed Using Voice RecognitionTranscribe Date/Time: Feb 13 2017 10:02ADictated by: GREGORIA GODWIN MDThis examination was interpreted and the report reviewed and electronically signed by: GREGORIA GODWIN MD on Feb 13 2017 12:46PM [id number] Normal [facility] Encounters Encounter Date Encounter Type Care Provider Facility Start: 12-06-2023 End: 12-06-2023 Emergency department patient visit [facility] Start: 10-09-2023 End: 10-09-2023 ambulatory [facility] Start: 07-31-2023 End: 07-31-2023 ambulatory [facility] Start: 07-31-2023 End: 07-31-2023 ambulatory [facility] Start: 05-04-[address] [facility] 911 DISPATCHER-BORING MACHINE SET UP OPERATOR JIG Work Phone: [facility] - Family Medicine Start: 04-10-2023 Refill [facility] 911 DISPATCHER-BORING MACHINE SET UP OPERATOR JIG Work Phone: [facility] - Family Medicine Comment on above: Hypertension, unspec ified type Start: 06-07-2022 End: 06-07-[address] ALYSHA DAVIS . Facility:[facility] Start: 03-02-[address] JUAN SALGUERO [facility] ity:[facility]1 Start: 10-26-2021 End: 10-27-[address] JUAN SALGUERO Facility:[facility] Start: 09-19-2021 End: 09-20-[address] ROWAN HARRIS Facility:[facility] Start: 08-19-2021 End: 08-20-[address] JUAN SALGUERO Facility:[facility] Start: 07-04-2018 Patient encounter procedure [facility] Facility:[facility] Start: 06-27-2018 Patient encounter procedure [facility] Facility:[facility] Start: 03-29-2017 Ambulatory [facility] Start: 03-05-2017 Ambulatory [facility] Start: 02-12-2017 [facility] Procedures Date Procedure Procedure Detail Performing Clinician Start: 01-09-2023 Adult depression scr eening assessment Rowan Harris 911 DISPATCHER-BORING MACHINE SET UP OPERATOR JIG Work Phone: Start: 11-23-2022 Colonoscopy Rowan Harris 911 DISPATCHER-BORING MACHINE SET UP OPERATOR JIG Work Phone: Start: 09-19-2021 Mammography Rowan Harris 911 DISPATCHER-BORING MACHINE SET UP OPERATOR JIG Work Phone: Start: 12-27-2020 Microscopic observat ion [Identifier] in Cervix by Cyto stain Rowan Harris 911 DISPATCHER-BORING MACHINE SET UP OPERATOR JIG Work Phone: Plan of Treatment Date Care Activity Detail Author Start: 11-24-2027 Screening for malignant neoplasm of colon Colonoscopy [facility] [employer] [facility] Start: 05-18-2025 DTaP,Tdap and Td Vaccines (3 - Td or Tdap) DTaP,Tdap and Td Vaccines (3 - Td or Tdap) [facility] [employer] [facility] Start: 01-10-2024 Adult BMI Screening Adult BMI Screening [facility] Start: 01-10-2024 Depression Screening Depression Screening [facility] Start: 01-10-2024 Tobacco Screening Tobacco Screening [facility] [employer] [facility] Start: 12-28-2023 Screening for malignant neoplasm of cervix Pap Smear [facility] [employer] [facility] Start: 09-26-2023 Adult BMI Follow Up Plan Adult BMI Follow Up Plan [facility] [employer] [facility] Start: 09-19-2022 Screening for malignant neoplasm of breast [facility] Start: 05-25-2015 Administration of varicella zoster vaccine Zoster (Shingles) Vaccine (1 of 2) [facility] Immunizations Immunization Date Immunization Notes Care Provider Fa cility 02-23-2023 COVID-19, mRNA, LNP- S, PF, 30mcg/0.3mL Dose Rowan Harris 911 DISPATCHER-BORING MACHINE SET UP OPERATOR JIG Work Phone: [facility] 01-22-2023 influenza, injectabl e, madin dasha canine kidney, preservative free Rowan Harris 911 DISPATCHER-BORING MACHINE SET UP OPERATOR JIG Work Phone: [facility] 01-03-2021 Influenza, injectabl e, Madin [place] Canine Kidney, preservative free, quadrivalent Rowan Harris 911 DISPATCHER-BORING MACHINE SET UP OPERATOR JIG Work Phone: [facility] 12-20-2019 influenza, injectabl e, quadrivalent, preservative free Rowan Harris 911 DISPATCHER-BORING MACHINE SET UP OPERATOR JIG Work Phone: [facility] 11-29-2018 influenza, injectabl e, quadrivalent, preservative free Rowan Harris 911 DISPATCHER-BORING MACHINE SET UP OPERATOR JIG Work Phone: [facility] 05-19-2015 tetanus toxoid, redu gricelda diphtheria toxoid, and acellular pertussis vaccine, adsorbed Rowan Harris 911 DISPATCHER-BORING MACHINE SET UP OPERATOR JIG Work Phone: [facility] 04-28-2014 tetanus toxoid, redu gricelda diphtheria toxoid, and acellular pertussis vaccine, adsorbed Rowan Harris 911 DISPATCHER-BORING MACHINE SET UP OPERATOR JIG Work Phone: [facility] 01-02-2014 influenza, seasonal, injectable Rowan Harris 911 DISPATCHER-BORING MACHINE SET UP OPERATOR JIG Work Phone: [facility] Payers Date Payer Category Payer Unknown [id number] 1965 Unknown [id number] 2.16.84 [id number] 1965 Unknown [id number] 2.16.84 [id number] 1965 Unknown [id number] .16.84 [id number] 1965 Unknown [id number] 2.16.84 [id number] 1965 Unknown [id number] .16.84 [id number] 1965 Unknown [id number] 2.16.84 [id number] 1965 Unknown [id number] 2.16.8 [id number] 1965 Unknown [id number] 2.16.8 [id number] 1965 Unknown [id number] 2.16.8 [id number] 1965 Unknown [id number] 2.16.8 [id number] 1959 Self-pay [id number] 1959 Self-pay 1959 Unknown [id number] Social History Date Type Detail Facility [facility] Start: 11-23-2022 Tobacco use and exposure Smokeless tobacco non-user [facility] Start: 01-09-2023 Alcohol intake 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 (finding) [facility] Start: 04-08-2020 End: 01-09-2023 Alcohol intake [facility] Start: 04-08-2020 End: 01-09-2023 Tobacco use panel [facility] Adolescent depressio n screening assessment 0 [facility] Start: 08-31-2022 Tobacco Comment Smoked 2 times as a teenager [facility] Start: 1965 Sex Assigned At Not on file P [facility] Evaluation note Note Date & Type Note Facility Evaluation note Diagnosis Hypertension, unspecified type documented in this encounter [facility] Instructions Note Date & Type Note Facility Instructions Not on filedocumented in this en counter [facility] Instructions Note Date & Type Note Facility Instructions Not on filedocumented in this en counter [facility] Summary Purpose Family History No Family [...] section and content) DATE CREATED AUTHOR 08/20/2017 [facility] DATE CREATED AUTHOR AUTHOR'S ORGANIZ ATION 07/05/2018 [facility] DATE CREATED AUTHOR AUTHOR'S ORGANIZ ATION 07/28/2021 [facility] DATE CREATED AUTHOR AUTHOR'S ORGANIZ ATION 06/15/2022 [facility] DATE CREATED AUTHOR AUTHOR'S ORGANIZ ATION [facility]20[facility] DATE CREATED AUTHOR AUTHOR'S ORGANIZ ATION 10/10/2023 [facility] DATE CREATED AUTHOR AUTHOR'S ORGANIZ ATION 12/08/2023 [facility] Reason for Visit (unrecogniz ed section and content) Reason Comments Med Refill Care Teams (unrecognized sec tion and content) Electrical Controls Engineer Relationship Specialty Start Date End Date Steven VeneciaANGELIQUE [facility] [address] [place] [address] PCP - General Family Medicine 10/26/21 Electrical Controls Engineer Relationship Specialty Start Date End Date Geoffreyjordyn VeneciaERIC Martinez [address] [place] [address] PCP - General Family Medicine 10/26/21 FOR [...] BE BASED ON THE PRIMARY CLINICAL RECORDS. [facility] [employer] [facility]. provides no warranty or guarantee of the accuracy or completeness of information in this document.
[2023-12-19 13:09] LABS: Age Gdln ACOG Testing Note (.); HPV Aptima Negative (Negative); IGP, Aptima HPV, rfx 16/18,45 Note (.)
== END 2023-12-12 19:31 | disposition home or self-care (01) ==
LOC: LAB 19:30
PROVIDERS: PCP Nurse Practitioner Family; Visit Provider Obstetrics & Gynecology
DX: Z01.419 Encounter for gynecological examination (general) (routine) without abnormal findings (principal)
CPT/HCPCS: 87624; 88175

== ENCOUNTER 2024-04-17 19:01 | Emergency (ER) | payer SELFPAY ==
[2024-04-17 19:03] VITALS: BP 153/84; PULSE 90; TEMP 37.9; O2SAT 98; BMI 40.7
--- OUTSIDE RECORDS SUMMARY | 2024-04-17 19:08 | XMS_ITS | CCD ---
Author Organization [facility] Care Team Providers Care Test Lab Technician Name Role Phone TOMMY, FADUMO Unavailable Unavailable TOMMY, FADUMO Unavailable Unavailable TOMMY, FADUMO Unavailable Unavailable TOMMY, FADUMO Unavailable Unavailable TOMMY, FADUMO Unavailable Unavailable TOMMY, FADUMO Unavailable Unavailable ANAYELI CASSIDY Admitting Unavailable STEPANICANAYELI Attending Unavailable STEPANICANAYELI Admitting Unavailable STEPANAYELI BRITT Attending Unavailable ELVIS ., DR ENCARNACION Consulting Unavailable ELVIS ., DR ENCARNACION Admitting Unavailable NADERER, DR JUAN Campa Primary Care Unavailable ELVIS ., DR ENCARNACION Attending Unavailable NADERER, DR JUAN Campa Primary Care Unavailable KUNS, DR SANTOS Culver Admitting Unavailable KUNS, DR SANTOS Culver Attending Unavailable KUNS, DR SANTOS Culver Attending Unavailable KUNS, DR SANTOS Culver Primary Care Unavailable KUNS, DR SANTOS Culver Admitting Unavailable ZIEBER, DR TIM Culver Consulting Unavailable KUNS, DR SANTOS Culver Consulting Unavailable NADERER, DR JUAN Campa Primary Care Unavailable ZIEBER, DR TIM Culver Consulting Unavailable KUNS, DR SANTOS Culver Attending Unavailable KUNS, DR SANTOS Culver Admitting Unavailable KUNS, DR SANTOS Culver Consulting Unavailable NADERER, DR JUAN Campa Primary Care Unavailable KUNS, DR SANTOS Culver Attending Unavailable KUNS, DR SANTOS Culver Consulting Unavailable KUNS, DR SANTOS Culver Admitting Unavailable KUNWinter, SANTOS MARTINEZ Attending Unavailable SANTOS COOLEY Referring Unavailable KUNWinter, SANTOS MARTINEZ Primary Care Unavailable JEREMY WADSWORTH Attending Unavailable JEREMY WADSWORTH Referring Unavailable WADSWORTH, JEREMY Zhang Primary Care Unavailable JEREMY WADSWORTH Attending Unavailable JEREMY WADSWORTH Referring Unavailable ANANTH, JEREMY J Primary Care Unavailable SANTOS COOLEY Referring Unavailable KUNS, SANTOS MARTINEZ Primary Care Unavailable JEREMY WADSWORTH Referring Unavailable WADSWORTH, JEREMY J Primary Care Unavailable Unavailable Primary Care Provider UnavailPRACHI Cesar Attending Unavailable JEREMY WADSWORTH Referring Unavailable ALYSHA LEAL Attending Unavailable JEREMY WADSWORTH Primary Care Unavailable CARA JAMES Attending Unavailable JEREMY WADSWORTH Referring Unavailable JEREMY WADSWORTH Primary Care Unavailable JEREMY WADSWORTH Referring Unavailable JEREMY WADSWORTH Primary Care Unavailable Medications Current Medications Medication Drug Class(es) Dates Sig (Normalized) Sig (Original) atenolol 25 mg oral tablet (7 sources) beta-Adrenergic Leland Start: 04-10-2023 take 1 tablet by mouth at bedtime atenolol (Tenormin) 25 MG tablet Take 1 tablet by mouth at bedtime 04/10/2023 Active cholecalciferol 0.125 mg oral capsule (14 sources) Vitamin D Start: 05-05-2023 take 1 capsule by mouth once daily cholecalciferol (Vitamin D-3) 125 MCG (5000 UT) capsule Take 1 capsule by mouth Daily 05/05/2023 Active cholecalciferol 25 MCG (1000 UT) capsule Vitamin D3 Active fluocinonide 0.5 mg/ml topical solution (7 sources) Corticosteroid Start: 08-21-2022 fluocinonide (Lidex) 0.05 % external solution APPLY TO SCALP AND MASSAGE INTO AFFECTED AREAS ONCE A DAY SUNDAY TO SUNDAY - OFF ON WEEKENDS 08/21/2022 Active ibuprofen 800 mg oral tablet (7 sources) Nonsteroidal Anti-inflammatory Drug Start: 09-25-2022 take 1 tablet by mouth every six hours as needed ibuprofen 800 MG tablet Take 800 mg by mouth every 6 (six) hours if needed 09/25/2022 Active meclizine hydrochloride 25 mg oral tablet (3 sources) Antiemetic Start: 12-12-2023 End: 01-01-2024 take 1 tablet by mouth three times daily as needed for dizziness meclizine (Antivert) 25 MG tablet Indications: Vertigo Take 1 tablet (25 mg) by mouth 3 (three) times a day as needed for dizziness for up to 20 days 30 tablet 1 12/12/2023 01/01/2024 Active meloxicam 15 mg oral tablet (6 sources) Nonsteroidal Anti-inflammatory Drug Start: 10-09-2023 take 1 tablet by mouth in the morning meloxicam (Mobic) 15 MG tablet Take 15 mg by mouth in the morning. 10/09/2023 Active tiZANidine 4 mg oral tablet (7 sources) Central alpha-2 Adrenergic Agonist Start: 10-09-2022 End: 04-07-2024 take 1 tablet by mouth every eight hours as needed tiZANidine (Zanaflex) 4 MG tablet Take 4 mg by mouth every 8 (eight) hours if needed 10/09/2022 04/07/2024 Discontinued (Therapy completed) Completed/Discontinued Medications Medication Drug Class(es) Dates Sig (Normalized) Sig (Original) loratadine 10 mg oral tablet (3 sources) End: 12-12-2023 take 1 tablet by mouth in the morning loratadine (Claritin) 10 MG tablet Take 10 mg by mouth in the morning. 12/12/2023 Discontinued Problems Active Problems Problem Classification Problem Date Documented Date Episodic/Chronic Conditions associated with dizziness or vertigo (1 source) Conditions associated with dizziness or vertigo Onset: 12-06-2023 Diabetes mellitus without complication (2 sources) Other abnormal glucose; Translations: [Other abnormal glucose] Onset: 12-11-2023 Episodic Essential hypertension (3 sources) Hypertensive disorder; Translations: [Essential (primary) hypertension] Onset: 02-07-2022 Chronic Menopausal disorders (7 sources) Postmenopausal bleeding; Translations: [Menopausal and female climacteric states] Onset: 10-26-2021 Chronic Nutritional deficiencies (1 source) Vitamin D deficiency, unspecified; Translations: [Vitamin D deficiency, unspecified] Onset: 04-28-2022 Chronic Other acquired deformities (2 sources) Contracture of joint of left ankle; Translations: [Contracture, left ankle] Onset: 10-28-2021 04-07-2024 Chronic Other connective tissue disease (1 source) Other muscle spasm; Translations: [Other muscle spasm] Onset: 10-09-2023 Episodic Other ear and sense organ disorders (2 sources) Sensorineural hearing loss, unilateral, left ear, with unrestricted hearing on the contralateral side; Translations: [Sensorineural hearing loss, unilateral] 04-07-2024 Chronic Other ear and sense organ disorders (2 sources) Tinnitus of left ear; Translations: [Tinnitus, left ear] 04-07-2024 Episodic Other screening for suspected conditions (not mental disorders or infectious disease) (1 source) Abnormal findings on diagnostic imaging of other specified body structures; Translations: [ABNORML FIND DX IMG OTH BODY STRUC] Onset: 10-27-2021 Chronic Residual codes; unclassified (1 source) Asymptomatic menopausal state; Translations: [Asymptomatic menopausal state] Onset: 10-09-2023 Episodic Residual codes; unclassified (2 sources) Postmenopausal state; Translations: [Asymptomatic menopausal state] 12-12-2023 Episodic Thyroid disorders (2 sources) Nontoxic single thyroid nodule; Translations: [Nontoxic single thyroid nodule] Onset: 01-09-2023 Chronic Unclassified (1 source) Unknown / UNK(Unknown) Onset: 03-29-2017 Past or Other Problems Problem Classification Problem Date Documented Date Episodic/Chronic Chronic obstructive pulmonary disease and bronchiectasis (1 source) Bronchitis, not specified as acute or chronic; Translations: [Bronchitis, not specified as acute or chronic] Onset: 07-31-2023 Episodic Conditions associated with dizziness or vertigo (11 sources) Dizziness and giddiness; Translations: [Vertigo] Onset: 04-18-2017 12-12-2023 Episodic Other female genital disorders (1 source) Noninflammatory disorder of uterus, unspecified; Translations: [NONINFLAMMATORY DISORDER UTERUS UNS] Onset: 10-27-2021 Episodic Other lower respiratory disease (4 sources) Other forms of dyspnea; Translations: [OTHER FORMS OF DYSPNEA] Onset: 08-19-2021 Episodic Other lower respiratory disease (1 source) Cough Onset: 07-31-2023 Episodic Other screening for suspected conditions (not mental disorders or infectious disease) (14 sources) Encounter for screening for malignant neoplasm of cervix; Translations: [Encounter for screening mammogram for malignant neoplasm of breast] Onset: 02-13-2017 Episodic Residual codes; unclassified (1 source) Family [...] HX MALIGNANT NEOPLASM BLADDER] Onset: 09-20-2021 Episodic Spondylosis; intervertebral disc disorders; other back problems (1 source) Radiculopathy, cervical region; Translations: [Radiculopathy, cervical region] Onset: 07-31-2023 Episodic Results Test Name Value Interpretation Reference Range Facility IGP,APTIMA HPV,AGE GDLNon AGE GDLN ACOG TESTING Note . [facility] Comment on above: TESTS RESULT FLAG UN ITS REF RANGE LAB Clinician Provided Cytology Information Source.............Cervix;Endocervix No. of containers..01 ThinPrep Vial Age Algo ACOG Karen... FLAG LEGEND: L-Low Normal,H-High Normal,LL-Alert Low,HH-Alert High <-Panic Low,>-Panic High,A-Abnormal,AA-Critical Abnormal Performed at: 01 = [facility] [address] Crystal Egan MD, HPV APTIMA Negative Negative [facility] e Comment on above: This nucleic acid am plification test detects fourteen high- risk HPV types (16,18,31,33,35,39,45,51,52,56,58,59,66,68) without differentiation. Performed at: =[facility] [id number] Computer Recycling Worker: Crystal Egan MD, Phone: [phone] Performed at: WB - [facility] [address], [place] [id number] Computer Recycling Worker: Crystal Egan MD, Phone: [phone] IGP, APTIMA HPV, RFX 16/18,45 Note . [facility] Comment on above: TESTS RESULT FLAG UN ITS REF RANGE LAB DIAGNOSIS: 02 NEGATIVE FOR INTRAEPITHELIAL LESION OR MALIGNANCY. Specimen adequacy: 02 Satisfactory for evaluation. No endocervical component is identified. Performed by: Jamie Ellison, Rn Or Lvn (ASC) . 02 Note: Note 02 The Pap smear is a screening test designed to aid in the detection of premalignant and malignant conditions of the uterine cervix. It is not a diagnostic procedure and should not be used as the sole means of detecting cervical cancer. Both false-positive and false-negative reports do occur. Test Methodology: Note 02 This liquid based ThinPrep(R) pap test was screened with the use of an image guided system. HPV Genotype Reflex Note 02 Criteria not met, HPV Genotype not performed. FLAG LEGEND: L-Low Normal,H-High Normal,LL-Alert Low,HH-Alert High <-Panic Low,>-Panic High,A-Abnormal,AA-Critical Abnormal Performed at: [facility] [address] [place] [address] Crystal Egan MD, BRUSH-SPATULA CERVIX ENDOCERVIX [facility] H[facility] A1C (GLYCO-HGB)on 2023 Glucose [Mass/Vol] 91 mg/dL Normal [facility] Comment on above: Performed By: ###MERY VICENTE #### [facility] ([id number]) [address], [facility] [address] [place] [address] HbA1c (Bld) [Mass fraction] 4.8 % Normal 4.4-5.6 [facility] Comment on above: Result Comment: NOTE ADA Guidelines Result HgbA1c Normal : less than 5.7 % Prediabetes : 5.7 % to 6.4 % Diabetes : > 6.4 % Use with caution in patients with abnormal hemoglobin variants as the half-life of red blood cells and in vivo glycation rates are affected. Performed By: ###MERY VICENTE #### [facility] ([id number]) [address], [facility] [address] [place] [address] THYROID PROFILEon 12-11-2023 Free T4 [Mass/Vol] 1.00 ng/dL Normal 0.61-1.60 [facility] Comment on above: Performed By: ###MERY VICENTE #### [facility] ([id number]) [address], [facility] [address] [place] [address] TSH 0.58 uIU/mL Normal 0.49-4.67 [facility] Comment on above: Performed By: #### MERY PATEL #### [facility] ([id number]) [address] [address] [place] [address] CBC AND AUTO DIFFon 12-06-19 24 ABSOLUTE BASOPHIL 0.0 X10E9/L Normal 0.0-0.2 [facility] Comment on above: Performed By: #### C BCA, CMP, 3040-3, 85187-6, 20979-9 #### [facility] ([id number]) [address] [place] [address] ABSOLUTE NEUTROPHIL 3.1 X10E9/L Normal 1.5-6.6 [facility] Comment on above: Performed By: #### C EDUARDO, CMP, 0-3, 07554-3, 34000-0 #### [facility] ([id number]) [address] [place] [address] Basophils/100 WBC (Bld) 0.4 % Normal [facility] Comment on above: Performed By: #### C EDUARDO, CMP, 0-3, , 05399-2 #### [facility] ([id number]) [address] [place] [address] Eosinophils (Bld) [#/Vol] 0.1 10*3/uL Normal 0.0-0.4 [facility] Comment on above: Performed By: #### Yomi CLARK, CMP, 3, , 46773-3 #### [facility] ([id number]) [address] [place] [address] Eosinophils/100 WBC (Bld) 2.1 % Normal [facility] Comment on above: Performed By: #### C EDUARDO, CMP, 3, , 89417-6 #### [facility] ([id number]) [address] [place] [address] Erythrocyte distribution width (RBC) [Ratio] 13.2 % Normal 11.5-15.0 [facility] Comment on above: Performed By: #### C EDUARDO, CMP, 0-3, , 60041-7 #### [facility] ([id number]) [address] [place] [address] Hematocrit (Bld) [Volume fraction] 38.3 % Normal 35-47 [facility] Comment on above: Performed By: #### C BCA, CMP, 0-3, , 38435-2 #### [facility] ([id number]) [address] [place] [address] Hemoglobin (Bld) [Mass/Vol] 12.8 g/dL Normal 11.7-15.5 [facility] Comment on above: Performed By: #### C BCA, CMP, 0-3, , 75613-9 #### [facility] ([id number]) [address] [place] [address] Lymphocytes (Bld) [#/Vol] 1.4 10*3/uL Normal 1.0-3.5 [facility] Comment on above: Performed By: #### C BCA, CMP, 0-3, , 67235-2 #### [facility] ([id number]) [address] [place] [address] Lymphocytes/100 WBC (Bld) 27.5 % Normal [facility] Comment on above: Performed By: #### C BCA, CMP, 0-3, , 19131-0 #### [facility] ([id number]) [address] [place] [address] MCH (RBC) [Entitic mass] 30.0 pg Normal 27-34 [facility] Comment on above: Performed By: #### C BCA, CMP, 3040-3, , 64738-4 #### [facility] ([id number]) [address] [place] [address] MCHC (RBC) [Mass/Vol] 33.2 g/dL Normal 32-36 [facility] Comment on above: Performed By: #### C BCA, CMP, 3040-3, , 59310-4 #### [facility] ([id number]) [address] [place] [address] MCV (RBC) [Entitic vol] 90 fL Normal 80-100 [facility] Comment on above: Performed By: #### C EDUARDO, CMP, 3040-3, 75595-5, 76221-3 #### [facility] ([id number]) [address] [place] [address] Monocytes (Bld) [#/Vol] 0.4 10*3/uL Normal 0-0.9 [facility] Comment on above: Performed By: #### C BCA, CMP, 3040-3, 10695-8, 29610-6 #### [facility] ([id number]) [address] [place] [address]81 Monocytes/100 WBC (Bld) 8.3 % Normal [facility] Comment on above: Performed By: #### Yomi CLARK, CMP, 3040-3, , 43322-6 #### [facility] ([id number]) [address] [place] [address]146 Neutrophils/100 WBC (Bld) 61.7 % Normal [facility] Comment on above: Performed By: #### C BCA, CMP, 3040-3, , 07897-8 #### [facility] ([id number]) [address] [place] [address] Platelet mean volume (Bld) [Entitic vol] 10.1 fL Normal 7-12 [facility] Comment on above: Performed By: #### C BCA, CMP, 3040-3, , 11515-3 #### [facility] ([id number]) [address] [place] [address] 35407 Platelets (Bld) [#/Vol] 208 10*3/uL Normal 150-450 [facility] Comment on above: Performed By: #### C BCA, CMP, 3040-3, , 41050-3 #### [facility] ([id number]) [address] [place] [address] RBC COUNT 4.24 X10E12/L Normal 3.80-5.20 [facility] Comment on above: Performed By: #### C BCA, CMP, 3040-3, 31999-0, 15299-4 #### [facility] ([id number]) [address] [place] [address] WBC (Bld) [#/Vol] 5.1 10*3/uL Normal 4.0-11.0 [facility] Comment on above: Performed By: #### C BCA, CMP, 0-3, , 97705-3 #### [facility] ([id number]) [address] [place] [address] COMPREHENSIVE METABOLIC PANE [facility] 12-06-2023 Albumin [Mass/Vol] 3.9 g/dL Normal 3.2-5.3 [facility] Comment on above: Performed By: #### C BCA, CMP, 3040-3, , 34370-9 #### [facility] ([id number]) [address] [place] [address]94 ALP [Catalytic activity/Vol] 56 U/L Normal 39-130 [facility] Comment on above: Performed By: #### C BCA, CMP, 3040-3, , 40563-0 #### [facility] ([id number]) [address] [place] [address] 11691 ALT [Catalytic activity/Vol] 15 U/L Normal 0-31 [facility] Comment on above: Performed By: #### C BCA, CMP, 3040-3, , 71751-2 #### [facility] ([id number]) [address] [place] [address]98[address] Anion gap [Moles/Vol] 7 mmol/L Normal 5-15 [facility] Comment on above: Performed By: #### C BCA, CMP, 3040-3, 77160-0, 81441-7 #### [facility] ([id number]) [address] [place] [address]3539 AST [Catalytic activity/Vol] 17 U/L Normal 0-41 [facility] Comment on above: Performed By: #### C BCA, CMP, 3040-3, , 79256-7 #### [facility] ([id number]) [address] [place] [address]9510 Bilirubin [Mass/Vol] 0.6 mg/dL Normal 0.3-1.2 [facility] Comment on above: Performed By: #### C BCA, CMP, 3040-3, , 44819-4 #### [facility] ([id number]) [address] [place] [address]74 Calcium [Mass/Vol] 8.6 mg/dL Normal 8.5-10.5 [facility] Comment on above: Performed By: #### C BCA, CMP, 3040-3, , 39508-7 #### [facility] ([id number]) [address] [place] [address] 54595 Chloride [Moles/Vol] 107 mmol/L Normal 98-109 [facility] Comment on above: Performed By: #### C BCA, CMP, 3040-3, , 23916-5 #### [facility] ([id number]) [address] [place] [address] 37699 CO2 [Moles/Vol] 23 mmol/L Normal 22-32 [facility] Comment on above: Performed By: #### C BCA, CMP, 3040-3, , 81733-4 #### [facility] ([id number]) [address] [place] [address] 30294 Creatinine [Mass/Vol] 0.48 mg/dL Normal 0.40-1.00 [facility] Comment on above: Result Comment: METH OD TRACEABLE TO IDMS STANDARD Performed By: #### C OLEG CLARK, 3040-3, 93870-7, 85147-1 #### [facility] ([id number]) [address] [place] [address] 10242 eGFR (CKD-EPI) NON-RACE DEPENDENT >90 Normal >59 [facility] Comment on above: Result Comment: Reported eGFR is based on the CKD-EPI 2020 equation that does not use a race coefficient. Performed By: #### C OLEG CLARK, 3040-3, 12959-7, 32991-8 #### [facility] ([id number]) [address] [place] [address]304 Glucose [Mass/Vol] 116 mg/dL High 65-99 [facility] Comment on above: Performed By: #### C OLEG CLARK, 3040-3, , 91545-6 #### [facility] ([id number]) [address] [place] [address] 83178 Potassium [Moles/Vol] 3.9 mmol/L Normal 3.5-5.0 [facility] Comment on above: Performed By: #### C OLEG CLARK, 3040-3, 97797-3, 05291-4 #### [facility] ([id number]) [address] [place] [address] 03887 Protein [Mass/Vol] 7.3 g/dL Normal 6.0-8.0 [facility] Comment on above: Performed By: #### C EDUARDO, CMP, 3040-3, 57791-7, 68961-0 #### [facility] ([id number]) [address] [place] [address] 23963 Sodium [Moles/Vol] 137 mmol/L Normal 134-146 [facility] Comment on above: Performed By: #### C BCA, CMP, 3040-3, 13441-1, 16322-8 #### [facility] ([id number]) [address] [place] [address] Urea nitrogen [Mass/Vol] 12 mg/dL Normal 5-23 [facility] Comment on above: Performed By: #### C BCA, CMP, 3040-3, 89599-3, 99352-0 #### [facility] ([id number]) [address] [place] [address] LIPASEon 12-06-2023 Lipase [Catalytic activity/Vol] 24 U/L Normal 17-40 [facility] Comment on above: Performed By: #### C BCA, CMP, 3040-3, 35552-8, 99971-6 #### [facility] ([id number]) [address] [place] [address] 17979 MAGNESIUMon 12-06-2023 Magnesium [Mass/Vol] 1.9 mg/dL Normal 1.8-2.6 [facility] Comment on above: Performed By: #### C BCA, CMP, 3040-3, 95050-2, 85798-2 #### [facility] ([id number]) [address] [place] [address]397 SARS/FLU A+B/RSV by NAAT/Mol ecularon 12-06-2023 SARS/FLU A+B/RSV by NAAT/Molecular FLU A [...] operators who are performing tests using either [employer] or [employer] systems and is limited to laboratories that [...] repeat. Fact Sheet for Healthcare Providers: https://www.fda.gov/media /213555/download Fact Sheet for Patients: https://www.fda.gov/media /206601/download Normal [facility] Comment on above: Performed By: #### C OVFLR #### [facility] ([id number]) [address] [place] [address] Troponin I.cardiac High sens itivity method [Mass/Vol]on 12-06-2023 1 HOUR TROP I, HIGH SENSITIVITY 2 ng/L Normal <16 [facility] Comment on above: Performed By: #### 8 9579-7 #### [facility] ([id number]) [address] [place] [address] 60383 TROPONIN I, HIGH SENSITIVITY <2 Normal <16 [facility] Comment on above: Performed By: #### C BCA, CMP, 3040-3, 59419-1, 49354-6 #### [facility] ([id number]) [address] [place] [address]23 URN MACROSCOPIC NURon 2023 BILIRUBIN CAROLINE Negative Normal NEG [facility] Comment on above: Performed By: #### N UM #### [facility] ([id number]) [address] [place] [address] [place] [address] BLOOD/HGB CAROLINE Trace Abnormal NEG [facility] Comment on above: Performed By: #### N UM #### [facility] ([id number]) [address] [place] [address] [place] [address] GLUCOSE CAROLINE Negative Normal NEG [facility] Comment on above: Performed By: #### N UM #### [facility] ([id number]) [address] [place] [address] [place] [address] KETONES CAROLINE Negative Normal NEG [facility] Comment on above: Performed By: #### N UM #### [facility] ([id number]) [address] [place] [address] [place] [address] LEUKOCYTE ESTERASE CAROLIEN Negative Normal NEG [facility] Comment on above: Performed By: #### N UM #### [facility] ([id number]) [address] [place] [address] [place] [address] NITRITE CAROLINE Negative Normal NEG [facility] Comment on above: Performed By: #### N UM #### [facility] ([id number]) [address] [place] [address] [place] [address] PH CAROLINE 7.0 Normal 5.0-8.5 [facility] Comment on above: Performed By: #### N UM #### [facility] ([id number]) [address] [place] [address] [place] [address] PROTEIN CAROLINE Negative Normal NEG [facility] Comment on above: Performed By: #### N UM #### [facility] ([id number]) [address] [place] [address] SPECIFIC GRAVITY CAROLINE 1.020 Normal 1.003-1.035 [facility] Comment on above: Performed By: #### N UM #### [facility] ([id number]) [address] [place] [address] UROBILINOGEN CAROLINE 0.2 eu/dL Normal <1.1 [facility] Comment on above: Performed By: #### N UM #### [facility] ([id number]) [address] [place] [address]321 XR CHEST 1 VWon 12-06-2023 XR CHEST [...] Tamir Galloway on 12/06/2023 9:56 AM Normal [facility] CBC AND AUTO DIFFon 07-31-19 24 ABSOLUTE BASOPHIL 0.0 X10E9/L Normal 0.0-0.2 [facility] Comment on above: Performed By: #### C BCA, CMP, THYR #### [facility] ([id number]) [address] [place] [address] ABSOLUTE NEUTROPHIL 2.8 X10E9/L Normal 1.5-6.6 [facility] Comment on above: Performed By: #### C BCA, CMP, THYR #### [facility] ([id number]) [address] [place] [address] Basophils/100 WBC (Bld) 0.6 % Normal [facility] Comment on above: Performed By: #### C BCA, CMP, THYR #### [facility] ([id number]) [address] [place] [address] Eosinophils (Bld) [#/Vol] 0.2 10*3/uL Normal 0.0-0.4 [facility] Comment on above: Performed By: #### C BCA, CMP, THYR #### [facility] ([id number]) [address], [facility] [address] [place] [address] Eosinophils/100 WBC (Bld) 3.3 % Normal [facility] Comment on above: Performed By: #### C BCA, CMP, THYR #### [facility] ([id number]) [address] [address] [place] [address] Erythrocyte distribution width (RBC) [Ratio] 13.0 % Normal 11.5-15.0 [facility] Comment on above: Performed By: #### C BCA, CMP, THYR #### [facility] ([id number]) [address] [address] [place] [address] Hematocrit (Bld) [Volume fraction] 38.4 % Normal 35-47 [facility] Comment on above: Performed By: #### C BCA, CMP, THYR #### [facility] ([id number]) [address], [facility] [address] [place] [address] Hemoglobin (Bld) [Mass/Vol] 12.7 g/dL Normal 11.7-15.5 [facility] Comment on above: Performed By: #### C BCA, CMP, THYR #### [facility] ([id number]) [address] [address] [place] [address] Lymphocytes (Bld) [#/Vol] 2.2 10*3/uL Normal 1.0-3.5 [facility] Comment on above: Performed By: #### C BCA, CMP, THYR #### [facility] ([id number]) [address], [address] [place] [address] Lymphocytes/100 WBC (Bld) 37.9 % Normal [facility] Comment on above: Performed By: #### C BCA, CMP, THYR #### [facility] ([id number]) [address], [address] [place] [address] MCH (RBC) [Entitic mass] 29.7 pg Normal 27-34 [facility] Comment on above: Performed By: #### C BCA, CMP, THYR #### [facility] ([id number]) [address], [address] [place] [address] MCHC (RBC) [Mass/Vol] 33.0 g/dL Normal 32-36 [facility] Comment on above: Performed By: #### C BCA, CMP, THYR #### [facility] ([id number]) [address], [address] [place] [address] MCV (RBC) [Entitic vol] 90 fL Normal 80-100 [facility] Comment on above: Performed By: #### C BCA, CMP, THYR #### [facility] ([id number]) [address], [address] [place] [address] Monocytes (Bld) [#/Vol] 0.6 10*3/uL Normal 0-0.9 [facility] Comment on above: Performed By: #### C BCA, CMP, THYR #### [facility] ([id number]) [address], [address] [place] [address] Monocytes/100 WBC (Bld) 10.3 % Normal [facility] Comment on above: Performed By: #### C BCA, CMP, THYR #### [facility] ([id number]) [address], [address] [place] [address] Neutrophils/100 WBC (Bld) 47.9 % Normal [facility] Comment on above: Performed By: #### C BCA, CMP, THYR #### [facility] ([id number]) [address] [address] [place] [address] Platelet mean volume (Bld) [Entitic vol] 10.0 fL Normal 7-12 [facility] Comment on above: Performed By: #### C BCA, CMP, THYR #### [facility] ([id number]) [address], [address] [address] Platelets (Bld) [#/Vol] 244 10*3/uL Normal 150-450 [facility] Comment on above: Performed By: #### C BCA, CMP, THYR #### [facility] ([id number]) [address], [facility] [address] [place] [address] RBC COUNT 4.27 X10E12/L Normal 3.80-5.20 [facility] Comment on above: Performed By: #### C BCA, CMP, THYR #### [facility] ([id number]) [address] [address] WBC (Bld) [#/Vol] 5.9 10*3/uL Normal 4.0-11.0 [facility] Comment on above: Performed By: #### C BCA, CMP, THYR #### [facility] ([id number]) [address], [address] [place] [address] COMPREHENSIVE METABOLIC PANE [facility] 07-31-2023 Albumin [Mass/Vol] 4.0 g/dL Normal 3.2-5.3 [facility] Comment on above: Performed By: #### C BCA, CMP, THYR #### [facility] ([id number]) [address], [address] [place] [address] ALP [Catalytic activity/Vol] 54 U/L Normal 39-130 [facility] Comment on above: Performed By: #### C BCA, CMP, THYR #### [facility] ([id number]) [address], [address] [place] [address] ALT [Catalytic activity/Vol] 20 U/L Normal 0-31 [facility] Comment on above: Performed By: #### C BCA, CMP, THYR #### [facility] ([id number]) [address], [address] [place] [address] Anion gap [Moles/Vol] 9 mmol/L Normal 5-15 [facility] Comment on above: Performed By: #### C BCA, CMP, THYR #### [facility] ([id number]) [address], [address] [place] [address] AST [Catalytic activity/Vol] 20 U/L Normal 0-41 [facility] Comment on above: Performed By: #### C BCA, CMP, THYR #### [facility] ([id number]) [address], [address] [place] [address] Bilirubin [Mass/Vol] 0.7 mg/dL Normal 0.3-1.2 [facility] Comment on above: Performed By: #### C BCA, CMP, THYR #### [facility] ([id number]) [address], [address] [place] [address] Calcium [Mass/Vol] 9.1 mg/dL Normal 8.5-10.5 [facility] Comment on above: Performed By: #### C BCA, CMP, THYR #### [facility] ([id number]) [address], [address] [place] [address] Chloride [Moles/Vol] 106 mmol/L Normal 98-109 [facility] Comment on above: Performed By: #### C BCA, CMP, THYR #### [facility] ([id number]) [address], [address] [place] [address] CO2 [Moles/Vol] 27 mmol/L Normal 22-32 [facility] Comment on above: Performed By: #### C BCA, CMP, THYR #### [facility] ([id number]) [address] [address] [place] [address] Creatinine [Mass/Vol] 0.69 mg/dL Normal 0.40-1.00 [facility] Comment on above: Result Comment: METH OD TRACEABLE TO IDMS STANDARD Performed By: #### C BCA, CMP, THYR #### [facility] ([id number]) [address] [address] eGFR (CKD-EPI) NON-RACE DEPENDENT >90 Normal >59 [facility] Comment on above: Result Comment: Reported eGFR is based on the CKD-EPI 2020 equation that does not use a race coefficient. Performed By: #### C BCA, CMP, THYR #### [facility] ([id number]) [address] [address] Glucose [Mass/Vol] 95 mg/dL Normal 65-99 [facility] Comment on above: Performed By: #### C BCA, CMP, THYR #### [facility] ([id number]) [address] [address] [place] [address] Potassium [Moles/Vol] 3.6 mmol/L Normal 3.5-5.0 [facility] Comment on above: Performed By: #### C BCA, CMP, THYR #### [facility] ([id number]) [address] [address] Protein [Mass/Vol] 7.3 g/dL Normal 6.0-8.0 [facility] Comment on above: Performed By: #### C BCA, CMP, THYR #### [facility] ([id number]) [address] [address] Sodium [Moles/Vol] 142 mmol/L Normal 134-146 [facility] Comment on above: Performed By: #### C BCA, CMP, THYR #### [facility] ([id number]) [address], [address] [place] [address] Urea nitrogen [Mass/Vol] 10 mg/dL Normal 5-23 [facility] Comment on above: Performed By: #### C BCA, CMP, THYR #### [facility] ([id number]) [address], [address] [place] [address] THYROID PROFILEon 07-31-2023 Free T4 [Mass/Vol] 1.10 ng/dL Normal 0.61-1.60 [facility] Comment on above: Performed By: #### C BCA, CMP, THYR #### [facility] ([id number]) [address], [address] [place] [address] TSH 0.36 uIU/mL Low 0.49-4.67 [facility] Comment on above: Performed By: #### C BCA, CMP, THYR #### [facility] ([id number]) [address], [address] [place] [address] PAP ACOG PANEL 2: 30 to 65on 06-15-2022 . . Normal [facility] Comment on above: Result Comment: Perf ormed at: WB Performed By: #### 4 [id number] #### [facility] [address] [place] [address] Dr. Keke Malhotra Age Gdln ACOG Testing 30-65 Normal [facility] Comment on above: Performed By: #### 4 [id number] #### [facility] [address] [address] [address] Keke Malhotra DIAGNOSIS: Comment Normal [facility] Comment on above: Result Comment: NEGA TIVE FOR INTRAEPITHELIAL LESION OR MALIGNANCY. Performed at: WB Performed By: #### 4 [id number] #### [facility] [address] [address] [address] Keke Malhotra HPV Aptima Negative Normal Negative [facility] Comment on above: Result Comment: This nucleic acid amplification test detects fourteen high-risk HPV types (16,18,31,33,35,39,45,51,52,56,58,59,66,68) without differentiation. Performed at: =G Performed By: #### 4 [id number] #### [facility] [address] [place] [address] Dr. Keke Malhotra HPV Genotype Reflex Comment Normal [facility] Comment on above: Result Comment: Crit eria not met, HPV Genotype not performed. Performed at: WB Performed By: #### 4 [id number] #### [facility] [address] [place] [address] Dr. Keke Malhotra Methodology: Comment Normal [facility] Comment on above: Result Comment: This liquid based ThinPrep(R) pap test was screened with the use of an image guided system. Performed at: WB Performed By: #### 4 [id number] #### [facility] [address] [place] [address] Dr. Keke Malhotra Note: Comment Normal [facility] Comment on above: Result Comment: The Pap smear is a screening test designed to aid in the detection of premalignant and malignant conditions of the uterine cervix. It is not a diagnostic procedure and should not be used as the sole means of detecting cervical cancer. Both false-positive and false-negative reports do occur. . Performed at: WB Performed By: #### 4 [id number] #### [facility] [address] [place] [address] Dr. Keke Malhotra Performed by: Comment Normal [facility] Comment on above: Result Comment: Gina Saleem Rn Or Lvn (ASCP) Performed at: WB Performed By: #### 4 [id number] #### [facility] [address] [place] [address] Dr. Keke Malhotra Specimen adequacy: Comment Normal [facility] Comment on above: Result Comment: Sati sfactory for evaluation. No endocervical component is identified. Performed at: WB Performed By: #### 4 [id number] #### [facility] [address] [place] [address] Dr. Keke Malhotra US PELVIS AND TRANSVAGon [...] TIM ALBRIGHT Date: 2021-10-27 07:45 Normal [facility] MAMM SCREEN 3D ROSSY CADon 09-19-2021 MAMM SCREEN 3D ROSSY CAD Patient: KALANI MARTINEZ Exam Date: 09/19/2021 : 1965 Gender:F Ordering : DR SANTOS COOLEY Admission #: [id number] Family : Order #: [id number] CLICK HERE TO VIEW EXAM RADIOLOGY REPORT [...] renal/bladder cancer at age 85. LOCATION: [facility] BREAST COMPOSITION: Heterogeneously dense,which may obscure small [...] Albright M.D. on 09/19/2021 at 15:48 Normal [facility] ECHOCARDIO M/2D COMPLETEon 0 08-19-2021 ECHOCARDIO M/2D COMPLETE Patient: KALANI MARTINEZ Exam Date: 08/19/2021 : 1965 Gender:F Ordering : DR SANTOS COOLEY Admission #: [id number] Family : Order #: [id number] CLICK HERE TO VIEW EXAM ECHOCARDIOGRAM REPORT [...] Area(A4C): 21.70 cm2 Left Atrium Systolic Volume(A2C): 55345 mm3 Left Atrium Systolic Volume(A4C): 70720 mm3 Mitral Valve MV E to A Ratio: 0.80 Deceleration Hudspeth: 2280 mm/s2 Mitral Valve A-Wave Peak Velocity: [...] [place] M.D. on 08/22/2021 at 12:40 Normal [facility] METABOLIC PANE Kalpesh 07-28-2021 Albumin [Mass/Vol] 4.1 g/dL Normal 3.6-5.1 [facility] Comment on above: Performed By: #### 1 0231, 81830, 2810 #### [facility] [address], [address] [place] [id number] Machine Shorth[employer] Teacher: Dylon Cordova MD Albumin/Globulin [Mass ratio] 1.4 {ratio} Normal 1.0-2.5 [facility] Comment on above: Performed By: #### 1 0231, 57177, 5790 #### [facility] [address], [address] [place] [id number] [employer] Teacher: Dylon Cordova MD ALP [Catalytic activity/Vol] 61 U/L Normal 37-153 [facility] Comment on above: Performed By: #### 1 0231, 51395, 7600 #### [facility] [address] [place] [address] Machine [employer] Teacher: Dylon Cordova MD ALT [Catalytic activity/Vol] 16 U/L Normal 6-29 [facility] Comment on above: Performed By: #### 1 0231, 67121, 7600 #### [facility] [address] [place] [address] Machine [employer] Teacher: Dylon Cordova MD AST [Catalytic activity/Vol] 16 U/L Normal 10-35 [facility] Comment on above: Performed By: #### 1 0231, 20384, 7600 #### [facility] [address] [place] [address] Machine [employer] Teacher: Dylon Cordova MD Bilirubin [Mass/Vol] 0.6 mg/dL Normal 0.2-1.2 [facility] Comment on above: Performed By: #### 1 0231, 31506, 7600 #### [facility] of [place] [address] Machine [employer] Teacher: Dylon Cordova MD BUN/CREATININE RATIO NOT APPLICABLE Normal 6-22 [facility] Comment on above: Performed By: #### 1 0231, 09956, 7600 #### [facility] [address] [place] [address] Machine [employer] Teacher: Dylon Cordova MD Calcium [Mass/Vol] 9.1 mg/dL Normal 8.6-10.4 [facility] Comment on above: Performed By: #### 1 0231, 95208, 7600 #### [facility] [address] [place] [address] Machine Sh[employer] Teacher: Dylon Cordova MD Chloride [Moles/Vol] 106 mmol/L Normal 98-110 [facility] Comment on above: Performed By: #### 1 0231, 24556, 7600 #### [facility] [address], [address] [place] [address] Machine [employer] Teacher: Dylon Cordova MD CO2 [Moles/Vol] 24 mmol/L Normal 20-32 [facility] Comment on above: Performed By: #### 1 0231, 18492, 7600 #### [facility] of [address], [address] [place] [address] Machine Sh[employer] Teacher: Dylon Cordova MD Creatinine [Mass/Vol] 0.67 mg/dL Normal 0.50-1.05 [facility] Comment on above: Result Comment: For patients >49 years of age, the reference limit for Creatinine is approximately 13% higher for people identified as -Nepalese. Performed By: #### 1 0231, 30324, 7600 #### [facility] [address], [address] [place] [address] Machine Shorthand Teacher: Dylon Cordova MD eGFR NON-AFR. COLOMBIAN 98 mL/min/1.73m2 Normal > OR = 60 [facility] Comment on above: Performed By: #### 1 0231, 72158, 7600 #### [facility] [address], [address] [place] [address] Machine Shorthand Teacher: Dylon Cordova MD GFR/1.73 sq M.predicted among blacks MDRD (S/P/Bld) [Vol rate/Area] 114 mL/min/{1.73_m2} Normal > OR = 60 [facility] Comment on above: Performed By: #### 1 0231, 01592, 7600 #### [facility] of [address], [address] [place] [address] Machine Shorthand Teacher: Dylon Cordova MD Globulin (S) [Mass/Vol] 2.9 g/dL Normal 1.9-3.7 [facility] Comment on above: Performed By: #### 1 0231, 33848, 7600 #### [facility] of [address], [address] [place] [address] Machine Sh[employer] Teacher: Dylon Cordova MD Glucose [Mass/Vol] 92 mg/dL Normal 65-99 [facility] Comment on above: Result Comment: Fasting reference interval Performed By: #### 1 0231, 35813, 7600 #### [facility] of [address], [address] [place] [address] Machine Sh[employer] Teacher: Dylon Cordova MD Potassium [Moles/Vol] 4.0 mmol/L Normal 3.5-5.3 [facility] Comment on above: Performed By: #### 1 0231, 02551, 7600 #### [facility] of [address], [address] [place] [address] Machine Sh[employer]and Teacher: Dylon Cordova MD Protein [Mass/Vol] 7.0 g/dL Normal 6.1-8.1 [facility] Comment on above: Performed By: #### 1 0231, 94081, 7600 #### [facility] of [address], [address] [place] [address] Machine Shorthand Teacher: Dylon Cordova MD Sodium [Moles/Vol] 139 mmol/L Normal 135-146 [facility] Comment on above: Performed By: #### 1 0231, 41020, 7600 #### [facility] [address] [place] [address] Machine [employer] Teacher: Dylon Cordova MD Urea nitrogen [Mass/Vol] 10 mg/dL Normal 7-25 [facility] Comment on above: Performed By: #### 1 0231, 34386, 7600 #### [facility] [address] [place] [address] Machine Sh[employer] Teacher: Dylon Cordova MD LIPID PANEL, [facility] 0 Cholesterol [Mass/Vol] 169 mg/dL Normal <200 [facility] Comment on above: Performed By: #### 1 0231, 59402, 7600 #### [facility] [place] [address] Machine Sh[employer] Teacher: Dylon Cordova MD Cholesterol in HDL [Mass/Vol] 52 mg/dL Normal > OR = 50 [facility] Comment on above: Performed By: #### 1 0231, 48326, 7600 #### [facility] [place] [address] Machine Sh[employer]and Teacher: Dylon Cordova MD Cholesterol in LDL [Mass/Vol] [...] LDL-C. Jhonny SS et al. JILLIAN. 2013;310(19): 8239-3955 (http://education.[employer]/faq/PRV181) Performed By: #### 1 0231, 11615, 7600 #### [facility] [place] [address] Machine Shorthand Teacher: Dylon Cordova MD Cholesterol.total /Cholesterol in HDL [Mass ratio] 3.3 {ratio} Normal <5.0 [facility] Comment on above: Performed By: #### 1 023, 40250, 7600 #### [facility] [place] [address] Machine [employer] Teacher: Dylon Cordova MD NON HDL CHOLESTEROL 117 mg/dL (calc) Normal <130 [facility] Comment on above: Result Comment: For patients with diabetes plus 1 major ASCVD risk factor, treating to a non-HDL-C goal of <100 mg/dL (LDL-C of <70 mg/dL) is considered a therapeutic option. Performed By: #### 1 0231, 29103, 7600 #### [facility] [place] [address] Machine Sh[employer]and Teacher: Dylon Cordova MD Triglyceride [Mass/Vol] 66 mg/dL Normal <150 [facility] Comment on above: Performed By: #### 1 0231, 80122, 7600 #### [facility] [address], [address] [address] Machine Shorthand Teacher: Dylon Cordova MD TSH+FREE T4on 07-28-2021 Free T4 [Mass/Vol] 1.2 ng/dL Normal 0.8-1.8 [facility] Comment on above: Performed By: #### 1 0231, 90926, 7600 #### [facility] [address], [address] [place] [address] Machine Sh[employer] Teacher: Dylon Cordova MD TSH Qn 0.63 m[IU]/L Normal 0.40-4.50 [facility] Comment on above: Performed By: #### 1 0231, 63791, 5150 #### [facility] of [address], [address] [place] [address] Machine Shorthand Teacher: Dylon Cordova MD [facility] BILon 017 [facility] ROSSY * * *Final Report* * *DATE OF EXAM: Feb 13 2017 10:14AM HCW 0620 - [facility] ROSSY / REASON: abnormal mammogram of left breast * * * * Physician Interpretation * * * *RESULT: #[id number] - [facility] BILBILATERAL DIGITAL DIAGNOSTIC MAMMOGRAM WITH [...] left breast is indeterminate. An ultrasound is recommended.#[id number] - [facility] Other Machine LTULTRASOUND OF LEFT BREAST: 02/13/2017RESULT:Comparis on is [...] Dr. Arias in consultation today .Gregoria Godwin M.D.sm/penrad:02/13/2017 12:46:11Imaging Technologist: Iram MARTINEZ)(Gen), [facility] Mammogram BI-RADS: 0 Incomplete: needs additional imaging evaluation Ultrasound BI-RADS: 2 Benign findingTranscribed Using Voice RecognitionTranscribe Date/Time: Feb 13 2017 10:02ADictated by: GREGORIA GODWIN MDThis examination was interpreted and the report reviewed and electronically signed by: GREGORIA GODWIN MD on Feb 13 2017 12:46PM [id number] Normal [facility] Other Machine LTon 02-13 [facility] Other Machine LT * * *Final Report* * *DATE OF EXAM: Feb 13 2017 11:49AM HCW 0593 - [facility] / REASON: abnormal mammogram of left breast * * * * Physician Interpretation * * * *RESULT: #[id number] - [facility] BILBILATERAL DIGITAL DIAGNOSTIC MAMMOGRAM WITH [...] left breast is indeterminate. An ultrasound is recommended.#[id number] - [facility] US BREAST LTD LTULTRASOUND OF LEFT [...] today .Gregoria Solis/nisa:02/13/2017 12:46:11Imaging Technologist: Iram MCCARTNEY(R)(M), [facility] Mammogram BI-RADS: 0 Incomplete: needs additional imaging evaluation Ultrasound BI-RADS: 2 Benign findingTranscribed Using Voice RecognitionTranscribe Date/Time: Feb 13 2017 10:02ADictated by: GREGORIA GODWIN MDThis examination was interpreted and the report reviewed and electronically signed by: GREGORIA GODWIN MD on Feb 13 2017 12:46PM [id number] Normal [facility] Vital Signs Date Time Vital Sign Value Performing Clinician Faci lity 04-07-2024 10:45-0500 Body height 170.2 cm Prachi Mathews MD Work Phone: [facility] 04-07-2024 10:45-0500 Body mass index (BMI) [Ratio] 40.88 kg/m2 Prachi Mathews MD Work Phone: [facility] 04-07-2024 10:45-0500 Body weight 118.39 kg rPachi Mathews MD Work Phone: [facility] 04-07-2024 10:45-0500 Diastolic blood pressure 85 mm[Hg] Prachi Mathews MD Work Phone: [facility] 04-07-2024 10:45-0500 Heart rate 59 /min Prachi Mathews MD Work Phone: [facility] 04-07-2024 10:45-0500 Systolic blood pressure 145 mm[Hg] Prachi Mathews MD Work Phone: [facility] 12-12-2023 15:52-0400 Body height 170.2 cm Alysha Elvis DO Work Phone: [facility] 12-12-2023 15:52-0400 Body mass index (BMI) [Ratio] 40.72 kg/m2 Alysha Elvis DO Work Phone: [facility] 12-12-2023 15:52-0400 Body weight 117.94 kg Alysha Elvis DO Work Phone: [facility] 12-12-2023 15:52-0400 Diastolic blood pressure 80 mm[Hg] Alysha Elvis DO Work Phone: [facility] 12-12-2023 15:52-0400 Systolic blood pressure 128 mm[Hg] Alysha Elvis DO Work Phone: [facility] Healthcare Encounters Encounter Date Encounter Type Care Provider Facility Start: 04-09-2024 ambulatory JEREMYKARIN WADSWORTH [facility] Start: 04-07-2024 End: 04-07-2024 Bamboo flowsheet Prachi Mathews MD Work Phone: [facility] Start: 04-07-2024 End: 04-07-2024 Bamboo flowsheet Prachi Mathews MD Work Phone: [facility] Start: 04-07-2024 End: 04-07-2024 ambulatory PRACHI MATHEWS Not Available Start: 04-07-2024 End: 04-07-2024 Office outpatient new 45 minutes Prachi Mathews MD Work Phone: [facility] Comment on above: 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); Left-sided tinnitus; BPPV (benign paroxysmal positional vertigo), right Start: 12-24-2023 ambulatory [facility] Start: 12-12-2023 End: 12-12-2023 ambulatory ALYSHA ELVIS Not Available Start: 12-12-2023 End: 12-12-2023 Patient encounter procedure Alysha Elvis DO Work Phone: [facility] Start: 12-12-2023 End: 12-12-2023 Periodic preventive med est patient 40-64yrs Alysha Elvis DO Work Phone: [facility] Comment on above: Postmenopausal state ; Well woman exam with routine gynecological exam; Vertigo Start: 12-12-2023 End: 12-12-2023 Bamboo flowsheet Alysha Elvis DO Work Phone: [facility] Start: 12-12-2023 End: 12-19-2023 Bamboo flowsheet Alysha Elvis DO Work Phone: [facility] Start: 12-12-2023 End: 12-19-2023 Clinisync Result Encounter Alysha Elvis DO Work Phone: [facility] Unsolicited Start: 12-11-2023 End: 12-11-2023 ambulatory [facility] Start: 12-11-2023 End: 12-11-[address] [facility] Start: 12-06-2023 End: 12-06-2023 Emergency department patient visit JEREMY WADSWORTH [facility] Start: 10-09-2023 End: 10-09-2023 [facility] Start: 07-31-2023 End: 07-31-2023 ambulatory [facility] Start: 07-31-2023 End: 07-31-2023 ambulatory [facility] Start: 06-07-2022 End: 06-07-[address] ALYSHA LEAL . Facility:[facility] Start: 03-02-[address] JUAN SALGUERO Facil ity:[facility]1 Start: 10-26-2021 End: 10-27-[address] JUAN SALGUERO Facility:[facility] Start: 09-19-2021 End: 09-20-[address] SANTOS COOLEY Facility:[facility] Start: 08-19-2021 End: 08-20-[address] JUAN SALGUERO Facility:[facility] Start: 07-04-2018 Patient encounter procedure [facility] Facility:[facility] Start: 06-27-2018 Patient encounter procedure [facility] Facility:[facility] Start: 03-29-2017 Ambulatory [facility] Start: 03-05-2017 Ambulatory [facility] Start: 02-12-2017 Ambulatory [facility] Procedures Date Procedure Procedure Detail Performing Clinician Start: 12-12-2023 IGP,APTIMA HPV,AGE GDLN Alysha Leal DO Work Phone: Start: 12-11-2023 Follow-up visit Follow-up JEREMY WADSWORTH Start: 11-28-2023 Mammography Alysha bustillos DO Work Phone: Start: 06-07-2022 Microscopic observat ion [Identifier] in Cervix by Cyto stain Alysha Leal DO Work Phone: Plan of Treatment Date Care Activity Detail Author Start: 06-08-2027 Screening for malignant neoplasm of cervix [facility] Start: 12-16-2024 End: 12-16-2024 Patient encounter procedure 12/16/2024 3:00 PM EDT Office Visit [facility] [address] [place] [address] Alysha Leal, DO [address] [place] [address] [facility] Start: 11-27-2024 Screening for malignant neoplasm of breast Mammogram [facility] Start: 04-23-2024 End: 04-23-2024 Patient encounter procedure 04/23/2024 8:00 AM EST Office Visit [facility] [address] [place] [id number] Prachi Mathews MD [address] [facility] [address] [place] [address] [facility] Start: 12-12-2023 End: 12-11-2024 DXA Skeletal system Views for bone density DEXA bone density Imaging Routine Postmenopausal state Expected: 12/12/2023 (Approximate), Expires: 12/11/2024 [facility] Work Phone: Comment on above: Expected: 12/12/2023 (Approximate), Expires: 12/11/2024 Start: 10-28-2023 Influenza vaccination Influenza Vacc ine (#1) [facility] Start: 1965 Screening for malignant neoplasm of colon [facility] THIN PREP TIS PAP AN D HR HPV DNA THIN PREP TIS PAP AND HR HPV DNA Pathology and Cytology Routine Well woman exam with routine gynecological exam Ordered: 12/12/2023 [facility] Comment on above: Ordered: 12/12/2023 Immunizations Immunization Date Immunization Notes Care Provider Fa syed 01-22-2023 influenza virus vacc ine, unspecified formulation Alysha Leal DO Work Phone: [facility] Payers Date Payer Category Payer Unknown [id number] 1965 Unknown [id number] 2.16.84 [id number] 1965 Unknown [id number] 2.16.84 [id number] 1965 Unknown [id number] 2.16.84 [id number] 1965 Unknown [id number] 2.16.84 [id number] 1965 Unknown [id number] 2.16.84 [id number] 1965 Unknown [id number] 2.16.84 [id number] 1965 Unknown [id number] 2.16.8 [id number] 1965 Unknown [id number] 2.16.8 [id number] 1965 Unknown [id number] 2.16.8 [id number] 1965 Unknown [id number] 2.16.8 [id number] 1965 Unknown [id number] 2.16.8 [id number] 1965 Unknown [id number] 2.16.8 [id number] 1959 Self-pay [id number] 1959 Self-pay 1959 Unknown [id number] Social History Date Type Detail [facility] Start: 1965 Sex assigned at Not on file [facility] Start: 04-07-2024 Gender identity Not on file [facility] Start: 04-07-2024 Tobacco smoking stat [facility] Never smoked tobacco [facility] Start: 04-07-2024 Tobacco use and exposure Smokeless t obacco non-user [facility] Start: 04-07-2024 Alcoholic beverage intake Life time non-drinker (finding) [facility] Start: 04-07-2024 History of Social function [facility] History of Present illness Narrative 04-07-2024 Prachi Mathews MD - 04/07/2024 10:30 AM EST Note Date & Type Note Facility 04-07-2024 History of Presen t illness Narrative Subjective Patient ID: Kalani Martinez is a 58 y.o. female who presents for Vertigo (Audio 02/15/24 Dr Zazueta) Pt reports she developed positional vertigo. Has been seen at [facility] rehab [facility] and had an Jannette. Sx improved, but recurred. Vertigo precipitated when lays in bed and rolls to the right. Pt reports she has loud disabling vertigo that started on the left. 02/14 audio shows mild left SNHL. Review of Systems All other systems reviewed and are negative. Family History Problem Relation Name Age of Onset Cancer Father Active Ambulatory Problems Diagnosis Date Noted Abnormal mammogram of left breast 02/13/2017 Abnormal vaginal bleeding in postmenopausal patient 10/28/2021 Contracture, left ankle 10/28/2021 Dizziness of unknown cause 04/18/2017 Resolved Ambulatory Problems Diagnosis Date Noted No Resolved Ambulatory Problems Past Medical History: Diagnosis Date Ear problems History reviewed. No pertinent surgical history. No Known Allergies Current Outpatient Medications on File Prior to Visit Medication Sig Dispense Refill atenolol (Tenormin) 25 MG tablet Take 1 tablet by mouth at bedtime cholecalciferol (Vitamin D-3) 125 MCG (5000 UT) capsule Take 1 capsule by mouth Daily cholecalciferol 25 MCG (1000 UT) capsule Vitamin D3 fluocinonide (Lidex) 0.05 % external solution APPLY TO SCALP AND MASSAGE INTO AFFECTED AREAS ONCE A DAY SUNDAY TO SUNDAY - OFF ON WEEKENDS ibuprofen 800 MG tablet Take 800 mg by mouth every 6 (six) hours if needed meloxicam (Mobic) 15 MG tablet Take 15 mg by mouth in the morning. [DISCONTINUED] tiZANidine (Zanaflex) 4 MG tablet Take 4 mg by mouth every 8 (eight) hours if needed No current facility-administered medications on file prior to visit. Objective Last Recorded Vitals Vitals: 04/07/24 1045 BP: 145/85 Pulse: 59 ENT Physical Exam Constitutional Appearance: patient appears well-developed, well-nourished and well-groomed, Head and Face Appearance: head appears normal and face appears atraumatic; Ear Ear Canals: right ear canal normal; left ear canal normal; Tympanic Membranes: right tympanic membrane normal; left tympanic membrane normal; Nose External Nose: nares patent bilaterally; external nose normal; Internal Nose: septum normal; Oral Cavity/Oropharynx Tongue: normal; Oral mucosa: normal; Hard palate: normal; Soft palate: normal; Tonsils: normal; Neck Neck: neck normal; neck palpation normal; Thyroid: thyroid normal; Respiratory Inspection: breathing unlabored; normal breathing rate; Auscultation: breath sounds are clear; Cardiovascular Inspection: extremities are warm and well perfused; no peripheral edema present; Auscultation: regular rate and rhythm; Assessment/Plan Diagnoses and all orders for this visit: Sensorineural hearing loss (SNHL) of left ear with unrestricted hearing of right ear Left-sided tinnitus BPPV (benign paroxysmal positional vertigo), right Mild unilateral SNHL and severe tinnitus. Could be due to an AN. Check MRI IAC and F/U. If MRI negative and tinnitus remains severe consider referral to [facility] tinnitus clinic. F/U with [facility] rehab for an Jannette documented in this encounter [facility] History of Present illness Narrative 12-12-2023 Alejandrina Barry - 12/12/2023 3:30 PM EDT Note Date & Type Note Facility 12-12-2023 History of Presen t illness Narrative Reason for Appointment: Patient ID: Kalani Martinez is a 58 y.o. female who presents for [facility] Visit Patient presents today for Annual Exam. MEDICATIONS Current Outpatient Medications Medication Instructions atenolol (Tenormin) 25 MG tablet 1 tablet, Oral, Nightly cholecalciferol (Vitamin D-3) 125 MCG (5000 UT) capsule 1 capsule, Oral, Daily cholecalciferol 25 MCG (1000 UT) capsule Vitamin D3 fluocinonide (Lidex) 0.05 % external solution APPLY TO SCALP AND MASSAGE INTO AFFECTED AREAS ONCE A DAY SUNDAY TO SUNDAY - OFF ON WEEKENDS ibuprofen 800 mg, Oral, Every 6 hours PRN meclizine (ANTIVERT) 25 mg, Oral, 3 times daily PRN meloxicam (MOBIC) 15 mg, Daily RT tiZANidine (ZANAFLEX) 4 mg, Oral, Every 8 hours PRN ALLERGIES No Known Allergies PROBLEMS Active Ambulatory Problems Diagnosis Date Noted No Active Ambulatory Problems Resolved Ambulatory Problems Diagnosis Date Noted No Resolved Ambulatory Problems No Additional Past Medical History HISTORY PAST MEDICAL HISTORY SOCIAL HISTORY History reviewed. No pertinent past medical history. Social History Tobacco Use Smoking status: Not on file Smokeless tobacco: Not on file Substance Use Topics Alcohol use: Not on file Drug use: Not on file FAMILY HISTORY No family history on file. SURGICAL HISTORY History reviewed. No pertinent surgical history. REVIEW OF SYSTEMS Review of Systems: Review of Systems OBJECTIVE Objective: OBGyn Exam Vitals: Estimated body mass index is 40.72 kg/m as calculated from the following: Height as of this encounter: 5' 7 . Weight as of this encounter: 260 lb. BP: 128/80 No LMP recorded. Patient is postmenopausal. ASSESSMENT & PLAN ICD-10-CM 1. Postmenopausal state Z78.0 DEXA bone density 2. Well woman exam with routine gynecological exam Z01.419 THIN PREP TIS PAP AND HR HPV DNA 3. Vertigo R42 meclizine (Antivert) 25 MG tablet Annual Exam: Patient presents today for an annual exam. Pap was obtained without difficulty. Patient does have complaints of dizziness. She saw her PCP and discussed vertigo. She is being referred by them to therapy for the vertigo. Patient agreeable to trying Antivert, prescription sent. Orders Placed This Encounter Procedures DEXA bone density Follow Up: Patient is to return in one year for annual unless needed otherwise. Documented by Alejandrina Barry on behalf of: Alysha Leal DO documented in this encounter [facility] Evaluation note Note Date & Type Note Facility Evaluation note Diagnosis Postmenopausal state Asymptomatic postmenopausal status (age-related) (natural) Well woman exam with routine gynecological exam Routine gynecological examination Vertigo Dizziness and giddiness documented in this encounter [facility] Evaluation note Note Date & Type Note Facility Evaluation note Diagnosis Sensorineural hearing loss (SNHL) of left ear with unrestricted hearing of right ear- Primary Left-sided tinnitus Unspecified tinnitus BPPV (benign paroxysmal positional vertigo), right documented in this encounter [facility] Summary Purpose Family History No Family History [...] section and content) DATE CREATED AUTHOR 08/20/2017 [facility] DATE CREATED AUTHOR AUTHOR'S ORGANIZ ATION 07/05/2018 [facility] DATE CREATED AUTHOR AUTHOR'S ORGANIZ ATION 07/28/2021 [facility] DATE CREATED AUTHOR AUTHOR'S ORGANIZ ATION 06/15/2022 [facility] DATE CREATED AUTHOR AUTHOR'S ORGANIZ ATION 12/13/2023 [facility] DATE CREATED AUTHOR AUTHOR'S ORGANIZ ATION 12/14/2023 [facility] DATE CREATED AUTHOR AUTHOR'S ORGANIZ ATION 04/08/2024 [facility] DATE CREATED AUTHOR AUTHOR'S ORGANIZ ATION 04/11/2024 [facility] Reason for Visit (unrecogniz ed section and content) Reason Comments Well Women Visit Reason Comments Vertigo Audio 02/15/24 Dr Ruben ayala FOR RECORDS PERTAINING TO PATIENTS WHO ARE [...] BE BASED ON THE PRIMARY CLINICAL RECORDS. [facility] [employer] [facility]. provides no warranty or guarantee of the accuracy or completeness of information in this document.
[2024-04-17 19:21] VITALS: O2SAT 97
--- NOTE | 2024-04-17 19:32 | ED_ITS ---
HPI HPI - General Adult General Chief complaint: Upper Respiratory Infection Stated complaint: SOB, BODY ACHES Time Seen by Provider: 04/17/24 19:31 Source: patient Mode of arrival: walk-in History of Present Illness HPI narrative: Patient is a 58-year-old female who is presenting to the ER today with flulike symptoms. Patient had an MRI of the brain with contrast of the right ear secondary to ongoing chronic issues. Patient is here because of sore throat, chills, myalgia, arthralgia, flulike symptoms. Patient is at bedside. 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 Uncertain of any obvious known sick contacts. No new headache, no new hearing loss or deficits. No swelling of tongue or lips. Patient has mild scratchy throat. Patient has some mild acid reflux, no rash, no chest pain or shortness of breath, no other acute complaints. Patient has no shaking, no rigors. All systems are negative except as noted/marked. All systems reviewed and otherwise negative. Nurses note and vital signs reviewed and patient is not hypoxic. General: The patient appears well and in no apparent distress. Patient is resting comfortably on cart. Patient is not toxic, lethargic, or listless Skin: Warm, dry, no pallor noted. There is no rash noted. No petechiae, purpura. Head: Normocephalic, atraumatic Eye: Normal conjunctiva, no drainage, EOMI. PERRL Ears, Nose, Mouth, and Throat: oral mucosa is moist. Nares patent. Mouth without vesicles. Patient has no unilateral swelling, no obvious signs of peritonsillar abscess, no posterior pharyngeal petechiae or exudate. Airways patent. Patient tolerating secretions well. No trismus. Patient has clear drainage noted to the posterior pharynx. Patient has mild cobblestoning to the posterior pharynx. No bilateral anterior or posterior cervical lymphadenopathy. Cardiovascular: Regular Rate and Rhythm, no murmur, gallop, rub Respiratory: Patient is in no distress, no accessory muscle use, lungs are clear to auscultation, no wheezing, rales or rhonchi Back: non-tender, no CVA tenderness bilaterally to percussion. No CT LS midline pain GI: Soft, obese, no tenderness to palpation, no masses appreciated. No rebound, guarding, or rigidity noted. No distention Musculoskeletal: Patient has full range of motion of all of the extremities, no motor, sensory, or focal neurological deficits Neurological: A&O x4, normal speech Psychiatric: Cooperative Related Data Home Medications ?Medication ?Instructions ?Recorded ?Confirmed atenolol 25 mg tablet 25 mg PO QPM 10/16/22 10/16/22 Previous Rx's ?Medication ?Instructions ?Recorded ondansetron 4 mg disintegrating 4 mg PO Q4H PRN nausea and 04/17/24 tablet vomiting 3 days #6 tabs Allergies Allergy/AdvReac Type Severity Reaction Status Date / Time No Known Drug Allergies Allergy Verified 07/27/23 10:08 Opioid HPI Opioid Management Most Recent Opioid Data: No Data to Display PFSH PFS Social History Smoking status: Never smoker Little interest or pleasure in doing things: not at all Feeling down, depressed, or hopeless: not at all Exam Constitutional Vital Signs, click to edit/add: Last Vital Signs Temp 100.3 F 04/17/24 19:03 Pulse 90 04/17/24 19:03 Resp 16 04/17/24 19:03 BP 153/84 H 04/17/24 19:03 Pulse Ox 97 04/17/24 19:21 O2 Del Method Room Air 04/17/24 19:21 Course Vital Signs Vital signs: Vital Signs Temperature 100.3 F 04/17/24 19:03 Pulse Rate 90 04/17/24 19:03 Respiratory Rate 16 04/17/24 19:03 Blood Pressure 153/84 H 04/17/24 19:03 Pulse Oximetry 98 04/17/24 19:03 Oxygen Delivery Method Room Air 04/17/24 19:03 Temperature 100.3 F 04/17/24 19:03 Pulse Rate 90 04/17/24 19:03 Respiratory Rate 16 04/17/24 19:03 Blood Pressure 153/84 H 04/17/24 19:03 Pulse Oximetry 97 04/17/24 19:21 Oxygen Delivery Method Room Air 04/17/24 19:21 Medical Decision Making MDM Narrative Medical decision making narrative: Patient's influenza and COVID were negative. Patient was educated using [id number] treatments. Patient chief concern was having allergic reaction from the dye from the MRI yesterday. Patient did have a fever. She was given Tylenol. Education [id number] treatment was discussed. No questions at discharge. Lab Data Labs: Lab Results 04/17/24 Range/Units 19:14 Influenza Type A Ag Negative Influenza Type B Ag Negative SARS-CoV-2 Ag (CV2AG) Negative (NEGATIVE) Discharge Plan Discharge Chief Complaint: Upper Respiratory Infection Clinical Impression: Sinus congestion, Fever, Flu-like symptoms Patient Disposition: Home, Self-Care Condition: Fair Prescriptions / Home Meds: New ondansetron 4 mg tablet,disintegrating 4 mg PO Q4H PRN (Reason: nausea and vomiting) 3 Days Qty: 6 0RF No Action atenolol 25 mg tablet 25 mg PO QPM Print Language: Estonian Instructions: Fever in Adults (ED), Influenza (ED), Upper Respiratory Infection (ED), Cold Symptoms (ED), How to Use Nasal [place] (ED) Additional Instructions: Increase fluids at home, Gatorade, Powerade, or water. Alternate using DayQuil, NyQuil, and Flonase. Add Mucinex as well as needed. Alternate Tylenol and Motrin every 4 hours to help with fever control, body aches or joint pain. Use [id number] vitamin C, vitamin D3, and zinc to help fight infection and help with her immune system. Referrals: SANTOS COOLEY [Primary Care Provider] - 1 week Discharge Date/Time: 04/17/24 20:07
[2024-04-17 19:36] LABS: Influenza Virus A Antigen Negative; Influenza Virus B Antigen Negative; Internal Control Within Normal Limits; SARS-CoV-2 Ag NEGATIVE (NEGATIVE)
[2024-04-17] MEDS: ACETAMINOPHEN 500 MG TABLET PO (20:02)
== END 2024-04-17 20:07 | disposition home or self-care (01) ==
PROVIDERS: Emergency Provider Emergency Medicine; PCP Nurse Practitioner Family
DX: R50.9 Fever, unspecified (principal); J34.9 Unspecified disorder of nose and nasal sinuses
CPT/HCPCS: 87804; 87811; 99284